=== PATIENT | male | born 1950 | race Caucasian/White ===

== ENCOUNTER 2018-01-26 02:59 | Inpatient (IN) | payer MEDICARE, OTHER ==
[2018-01-26 03:01] VITALS: BMI 34.7
--- NOTE | 2018-01-26 03:17 | ED PDOC ---
Arrival/HPI - General Chief Complaint: Weakness/Neurological Deficit Time Seen by Provider: 01/26/18 03:04 Historian: Patient - History of Present Illness Narrative History of Present Illness (Text): 01/26/18 03:17 Meek Alexander is a 67 year old male, whose past medical history includes hypertension and CVA, who presents to the Emergency department brought in by EMS for syncope and generalized weakness. Patient states he began feeling weak while in the bathroom, had a syncopal episode, and fell to the ground. On arrival, patient noted to be febrile at 103.6F. Patient denies any fever, chills , chest pain, shortness of breath, nausea, vomiting, headache, dizziness, or any other complaints. Symptom Onset: Gradual Symptom Course: Unchanged Activities at Onset: Light Context: Home Past Medical History - Provider Review Nursing Documentation Reviewed: Yes - Infectious Disease Hx of Infectious Diseases: None - Cardiac Hx Cardiac Disorders: Yes Hx Hypertension: Yes - Pulmonary Hx Respiratory Disorders: No - Neurological Hx Neurological Disorder: Yes HX Cerebrovascular Accident: Yes (lt sided deficits) - HEENT Hx HEENT Disorder: No - Renal Hx Renal Disorder: No - Endocrine/Metabolic Hx Endocrine Disorders: No - Hematological/Oncological Hx Blood Disorders: No - Integumentary Hx Dermatological Disorder: No - Musculoskeletal/Rheumatological Hx Musculoskeletal Disorders: No - Gastrointestinal Hx Gastrointestinal Disorders: No - Genitourinary/Gynecological Hx Genitourinary Disorders: No - Psychiatric Hx Psychophysiologic Disorder: No Hx Substance Use: No Family/Social History - Physician Review Nursing Documentation Reviewed: Yes Family/Social History: Unknown Family HX Smoking Status: Never Smoked Hx Alcohol Use: No Hx Substance Use: No Allergies/Home Meds Allergies/Adverse Reactions: Allergies No Known Allergies Allergy (Verified 01/26/18 03:04) Home Medications: Home Meds Medication Instructions Recorded Confirmed Aspirin [Aspirin Chewable] 81 mg PO DAILY 01/26/18 01/26/18 Losartan/Hydrochlorothiazide 1 each PO DAILY 01/26/18 01/26/18 [Losartan-Hctz 100-25 mg Tab] Omeprazole [Omeprazole] 20 mg PO DAILY 01/26/18 01/26/18 Simvastatin [Zocor] 20 mg PO DAILY 01/26/18 01/26/18 Review of Systems - Physician Review All systems were reviewed & negative as marked: Yes - Review of Systems Constitutional: Other (+generalized weakness) Eyes: Normal ENT: Normal Respiratory: Normal. absent: SOB Cardiovascular: Syncope Gastrointestinal: Normal. absent: Abdominal Pain, Diarrhea, Nausea, Vomiting Genitourinary Male: Normal. absent: Dysuria, Frequency, Hematuria, Urinary Output Changes Musculoskeletal: Normal. absent: Back Pain, Neck Pain Skin: Normal. absent: Rash Neurological: Normal. absent: Headache, Dizziness Endocrine: Normal Hemo/Lymphatic: Normal Psychiatric: Normal Physical Exam Vital Signs Reviewed: Yes Vital Signs Temp Pulse Pulse Resp BP Pulse Ox 01/26/18 15:27 99.6 F 86 18 99/44 L 97 01/26/18 13:01 99.3 F 81 81 18 99/45 L 01/26/18 13:00 78 18 100/40 L 96 01/26/18 11:00 99.3 F 82 18 99/49 L 97 01/26/18 09:40 103.6 F H 95 H 20 118/79 98 01/26/18 09:00 101 H 18 121/65 97 01/26/18 07:21 105 H 18 122/68 99 01/26/18 06:12 99.0 F 105 H 20 124/65 100 01/26/18 05:51 109 H 18 124/65 99 01/26/18 04:27 120 H 20 155/74 H 99 01/26/18 03:22 103.6 F H 126 H 19 142/74 93 L Temperature: Febrile Blood Pressure: Hypertensive Pulse: Tachycardic Respiratory Rate: Normal Appearance: Positive for: Well-Appearing, Non-Toxic, Comfortable Pain Distress: None Mental Status: Positive for: Alert and Oriented X 3 - Systems Exam Head: Present: Atraumatic, Normocephalic Pupils: Present: PERRL Extroacular Muscles: Present: EOMI Conjunctiva: Present: Normal Mouth: Present: Moist Mucous Membranes Neck: Present: Normal Range of Motion Respiratory/Chest: Present: Clear to Auscultation, Good Air Exchange. No: Respiratory Distress, Accessory Muscle Use Cardiovascular: Present: Regular Rate and Rhythm, Normal S1, S2. No: Murmurs Abdomen: No: Tenderness, Distention, Peritoneal Signs Back: Present: Normal Inspection Upper Extremity: Present: Normal Inspection. No: Cyanosis, Edema Lower Extremity: Present: Erythema (Left leg cellulitis). No: Edema Neurological: Present: GCS=15, CN II-XII Intact, Speech Normal Skin: Present: Warm, Dry, Normal Color. No: Rashes Psychiatric: Present: Alert, Oriented x 3, Normal Insight, Normal Concentration Medical Decision Making ED Course and Treatment: 01/26/18 03:17 Impression: 67 year old male complaining of generalized weakness and syncope. Plan: -- EKG -- Chest X-ray -- Labs, VBG, troponin, blood culture -- Urinalysis, urine drug screen -- IV fluids -- Zofran -- Reassess and disposition Prior Visits: Notes and results from previous visits were reviewed. Progress Notes: 01/26/18 04:00 Chest X-ray reviewed, shows no acute processes. 01/26/18 04:17 Pt febrile, tachycardic with WBC: 18.7 and lactate: 4.7. Code Sepsis called. 01/26/18 04:59 Reviewed EKG, sinus tachycardia at [address]-segment elevations or depressions, no T-wave inversions. 01/26/18 05:50 Case discussed with lpn medical assistant clinical rehabilitation liaison, who is aware and agrees with plan. 01/26/18 05:[address] Minor, who is aware and agrees with plan. Accepts pt in to hospitalist service. Pt will be admitted to to Telemetry for sepsis. - Lab Interpretations Microbiology Results: Microbiology Results 01/26/18 04:20 Blood Blood Culture - Preliminary NO GROWTH AFTER 3 DAYS 01/26/18 03:16 Blood Blood Culture - Preliminary NO GROWTH AFTER 3 DAYS 01/26/18 06:00 Urine,Clean Catch Urine Culture - Final No Growth (<1,000 CFU/ML) Lab Results: 01/26/18 03:16 01/26/18 03:16 Lab Results 01/26/18 06:00: Urine Color Yellow, Urine Appearance Clear, Urine pH 6.0, Ur Specific [place] 1.015, Urine Protein Negative, Urine Glucose (UA) Negative, Urine Ketones Negative, Urine Blood Trace-intact H, Urine Nitrate Negative, Urine Bilirubin Negative, Urine Urobilinogen 0.2, Ur Leukocyte Esterase Negative , Urine RBC 0 - 2, Urine WBC 0 - 2, Ur Epithelial Cells 0 - 2 01/26/18 03:16: Sodium 139, Chloride 94 L, Potassium 3.2 L, Carbon Dioxide 29, Anion Gap 20, BUN 23 H, Creatinine 1.4, Est GFR ( Amer) > 60, Est GFR ( Non-Af Amer) 51, Random Glucose 129 H, Calcium 9.3, Phosphorus 0.7 L*, Magnesium 1.3 L, Total Bilirubin 0.4, AST 32, ALT 24, Alkaline Phosphatase 108, Troponin I 0.03, Total Protein 8.3, Albumin 4.3, Globulin 4.0, Albumin/Globulin Ratio 1.1 01/26/18 03:16: pO2 29 L, VBG pH 7.39, VBG pCO2 51.0, VBG HCO3 30.9 H, VBG Total CO2 32.5 H, VBG O2 Sat (Calc) 58.9, VBG Base Excess 4.7 H, VBG Potassium 3.3 L, Sodium 136.0, Chloride 96.0 L, Glucose 130 H, Lactate 4.7 H*, FiO2 21.0, Venous Blood Potassium 3.3 L 01/26/18 03:16: PT 13.3 H, INR 1.16 H, APTT 25.4 01/26/18 03:16: WBC 18.7 H, RBC 5.48, Hgb 14.6, Hct 42.8, MCV 78.1 L, MCH 26.6, MCHC 34.1, RDW 15.0 H, Plt Count 325, MPV 9.0, Gran % 93.5 H, Lymph % (Auto) 4.3 L, [place] % (Auto) 1.8, Eos % (Auto) 0.2 L, Baso % (Auto) 0.2, Gran # 17.47 H , Lymph # (Auto) 0.8 L, [place] # (Auto) 0.3, Eos # (Auto) 0.0, Baso # (Auto) 0.03 , Neutrophils % (Manual) 85 H, Band Neutrophils % 7 H, Lymphocytes % (Manual) 5 L, Monocytes % (Manual) 3, Platelet Evaluation Normal 01/26/18 03:12: POC Glucose (mg/dL) 132 H I have reviewed the lab results: Yes - RAD Interpretation Radiology Orders: 01/26/18 03:22 CHEST PORTABLE [RAD] Stat Home Staging Specialist: ED Physician - EKG Interpretation Interpreted by ED Physician: Yes Type: 12 lead EKG - Medication Orders Current Medication Orders: Acetaminophen (Tylenol 325mg Tab) 650 mg PO Q4 PRN PRN Reason: Fever >100.4 F Last Admin: 01/27/18 23:36 Dose: 650 mg MAR Pain/Vitals Document 01/27/18 23:36 CDL (Rec: 01/27/18 23:37 CDL [id number]) Vitals Temperature (97.6 F-99.6 F) 100.4 F Temperature Source Oral Re-Assess: MAR Pain/Vitals Document 01/28/18 00:36 CDL (Rec: 01/28/18 04:47 CDL [id number] Vitals Temperature (97.6 F-99.6 F) 99.0 F Temperature Source Oral Albuterol/Ipratropium (Duoneb 3 Mg/0.5 Mg (3 Ml) Ud) 3 ml IH [id number] HANH Last Admin: 01/29/18 19:11 Dose: 3 ml Furosemide (Lasix) 20 mg IVP DAILY HANH Heparin Sodium (Porcine) (Heparin) 5,000 units SC Q12 HANH PRN Reason: Protocol Last Admin: 01/29/18 22:54 Dose: 5,000 units Subcutaneous Administrations Document 01/29/18 22:54 KOPPS (Rec: 01/29/18 22:54 KOPPS [id number][place] Injection Site MAR Injection Site Right Arm Charges for Administration # of Subcutaneous Administrations 1 Meropenem (Merrem Iv 1 Gm Premix) 50 mls @ 100 mls/hr IVPB Q12 [facility]AN[facility] PRN Reason: Protocol Last Admin: 01/29/18 22:55 Dose: 100 mls/hr eMAR Start Stop Document 01/29/18 22:55 KOPPS (Rec: 01/29/18 22:55 [id number][place] Intravenous Solution Start Date 01/29/18 Start Time 22:55 End Date 01/29/18 End time 23:25 Total Infusion Time 30 Doxycycline Hyclate 100 mg/ (Sodium Chloride) 100 mls @ 100 mls/hr IVPB Q12 [facility]AN[facility] PRN Reason: Protocol Last Admin: 01/29/18 22:54 Dose: 100 mls/hr eMAR Start Stop Document 01/29/18 22:54 KOPPS (Rec: 01/29/18 22:55 [id number][place] Intravenous Solution Start Date 01/29/18 Start Time 22:54 End Date 01/29/18 End time 23:54 Total Infusion Time 60 Methylprednisolone (Solu-Medrol) 40 mg IVP Q12 [facility] Last Admin: 01/29/18 22:54 Dose: 40 mg IVP Administration Document 01/29/18 22:54 KOPPS (Rec: 01/29/18 22:54 [id number][place] Charges for Administration # of IVP Administrations 1 Pantoprazole Sodium (Protonix Ec Tab) 40 mg PO 0600 [facility] Last Admin: 01/29/18 06:24 Dose: 40 mg Discontinued Medications Acetaminophen (Tylenol 325mg Tab) 975 mg PO STAT STA Stop: 01/26/18 09:39 Last Admin: 01/26/18 09:45 Dose: 975 mg [facility] Pain/Vitals Document 01/26/18 09:45 SECTION 8 PROPERTY MANAGER (Rec: 01/26/18 09:45 SECTION 8 PROPERTY MANAGER [id number]) Pain Reassessment Is This A Pain ReAssessment? No Re-Assess: [facility] Pain/Vitals Document 01/26/18 10:45 SECTION 8 PROPERTY MANAGER (Rec: 01/26/18 11:22 SECTION 8 PROPERTY MANAGER [id number]) Pain Reassessment Is This A Pain ReAssessment? Yes Acetaminophen (Tylenol 325mg Tab) 650 mg PO Q6H PRN PRN Reason: Fever >100.4 F Last Admin: 01/27/18 09:04 Dose: 650 mg MAR Pain/Vitals Document 01/27/18 09:04 RT (Rec: 01/27/18 09:04 RT [id number]) Vitals Temperature (97.6 F-99.6 F) 100.8 F Temperature Source Oral Re-Assess: MAR Pain/Vitals Document 01/27/18 10:04 RT (Rec: 01/27/18 11:15 RT [id number]) Pain Reassessment Is This A Pain ReAssessment? No Vitals Temperature (97.6 F-99.6 F) 100.5 F Temperature Source Oral Furosemide (Lasix) 40 mg IVP Q12 [facility] Last Admin: 01/28/18 22:35 Dose: 40 mg MAR Blood Pressure Document 01/28/18 22:35 KOPPS (Rec: 01/28/18 22:36 KOPPS [place] [id number]) Blood Pressure Blood Pressure (100/60-150/90) 119/71 IVP Administration Document 01/28/18 22:35 KOPPS (Rec: 01/28/18 22:36 KOPPS [id number]) Charges for Administration # of IVP Administrations 1 Home Med (Home Med) 4 unit PO DAILY [facility] Stop: 01/29/18 10:01 Last Admin: 01/29/18 14:53 Dose: 4 unit Sodium Chloride (Sodium Chloride 0.9%) 1,000 mls @ 80 mls/hr IV .[id number] [facility] Last Admin: 01/26/18 18:48 Dose: Lactated Ringer's 3,000 ml/ IV (SUPPLIES) 3,000 mls @ 6,395.64 mls/hr IV ONCE ONE PRN Reason: 60 ML/KG/HR Stop: 01/26/18 04:23 Last Admin: 01/26/18 04:37 Dose: 6,395.64 mls/hr eMAR Start Stop Document 01/26/18 04:37 SS (Rec: 01/26/18 04:37 SS [id number]) Intravenous Solution Start Date 01/26/18 Start Time 04:37 Vancomycin HCl (Vancomycin 1gm) 1 gm in 250 mls @ 167 mls/hr IVPB STAT STA PRN Reason: Protocol Stop: 01/26/18 06:12 Last Admin: 01/26/18 05:01 Dose: 167 mls/hr eMAR Start Stop Document 01/26/18 05:01 SS (Rec: 01/26/18 05:14 SS [id number]) Intravenous Solution Start Date 01/26/18 Start Time 05:01 End Date 01/26/18 End time 06:31 Total Infusion Time 90 Magnesium 2 gm/50 ml NS (Magnesium Sulfate 2 Gm/50 Ml Ns) 2 gm in 50 mls @ 50 mls/hr IVPB ONCE ONE Stop: 01/26/18 06:51 Last Admin: 01/26/18 07:05 Dose: 50 mls/hr eMAR Start Stop Document 01/26/18 07:05 SS (Rec: 01/26/18 07:05 SS [id number]) Intravenous Solution Start Date 01/26/18 Start Time 07:05 End Date 01/26/18 End time 08:05 Total Infusion Time 60 Aztreonam (Azactam 2 Gm) 100 mls @ 100 mls/hr IVPB STAT STA PRN Reason: Protocol Stop: 01/26/18 07:06 Last Admin: 01/26/18 07:44 Dose: 100 mls/hr eMAR Start Stop Document 01/26/18 07:44 IT (Rec: 01/26/18 07:45 IT [id number]) Intravenous Solution Start Date 01/26/18 Start Time 07:44 End Date 01/26/18 End time 08:44 Total Infusion Time 60 Cefepime HCl (Maxipime 2gm) 2 gm in 100 mls @ 100 mls/hr IVPB Q12 [facility] PRN Reason: Protocol Stop: 01/31/18 10:01 Last Admin: 01/27/18 09:04 Dose: 100 mls/hr eMAR Start Stop Document 01/27/18 09:04 RT (Rec: 01/27/18 09:05 RT [id number]) Intravenous Solution Start Date 01/27/18 Start Time 09:04 End Date 01/27/18 End time 10:00 Total Infusion Time 56 Potassium Chloride (Potassium Chloride 20 Meq/100 Ml) 20 meq in 100 mls @ 50 mls/hr IVPB Q2H [facility]AN[facility] Stop: 01/26/18 16:44 Last Admin: 01/26/18 18:02 Dose: 50 mls/hr eMAR Start Stop Document 01/26/18 18:02 MF (Rec: 01/26/18 18:02 MF [id number]) Intravenous Solution Start Date 01/26/18 Start Time 18:02 Sodium Chloride (Sodium Chloride 0.9%) 1,000 mls @ 100 mls/hr IV .Q10H [facility] Last Admin: 01/26/18 17:39 Dose: 100 mls/hr eMAR Start Stop Document 01/26/18 17:39 MF (Rec: 01/26/18 17:39 MF [id number]) Intravenous Solution Start Date 01/26/18 Start Time 17:39 Potassium Chloride (Potassium Chloride 10 Meq/100 Ml) 10 meq in 100 mls @ 50 mls/hr IVPB Q2H [facility] Stop: 01/27/18 01:29 Last Admin: 01/27/18 02:15 Dose: 50 mls/hr eMAR Start Stop Document 01/27/18 02:15 CDL (Rec: 01/27/18 02:15 CDL [id number]) Intravenous Solution Start Date 01/27/18 Start Time 02:15 Magnesium Sulfate/Dextrose (Magnesium Sulfate 1 Gm/100 Ml D5w) 1 gm in 100 mls @ 100 mls/hr IVPB ONCE ONE Stop: 01/26/18 22:47 Last Admin: 01/26/18 22:37 Dose: 100 mls/hr eMAR Start Stop Document 01/26/18 22:37 CDL (Rec: 01/26/18 22:37 CDL [id number]) Intravenous Solution Start Date 01/26/18 Start Time 22:37 End Date 01/26/18 End time 23:37 Total Infusion Time 60 Sodium Chloride (Sodium Chloride 0.9%) 1,000 mls @ 150 mls/hr IV .[id number] [facility] Last Admin: 01/27/18 11:12 Dose: 150 mls/hr eMAR Start Stop Document 01/27/18 11:12 RT (Rec: 01/27/18 11:12 RT [id number]) Intravenous Solution Start Date 01/27/18 Start Time 11:12 Vancomycin HCl 2 gm/ Sodium (Chloride) 500 mls @ 170 mls/hr IVPB ONCE ONE PRN Reason: Protocol Stop: 01/27/18 13:21 Last Admin: 01/27/18 17:41 Dose: 170 mls/hr eMAR Start Stop Document 01/27/18 17:41 RT (Rec: 01/27/18 17:42 RT [id number]) Intravenous Solution Start Date 01/27/18 Start Time 17:41 End Date 01/27/18 End time 20:40 Total Infusion Time 179 Calcium Gluconate 1,000 mg/ (Dextrose) 110 mls @ 110 mls/hr IVPB ONCE ONE Stop: 01/27/18 15:22 Sodium Chloride (Sodium Chloride 0.9%) 1,000 mls @ 200 mls/hr IV .Q5H [facility] Last Admin: 01/28/18 06:40 Dose: 200 mls/hr eMAR Start Stop Document 01/28/18 06:40 CDL (Rec: 01/28/18 06:41 CDL [id number]) Intravenous Solution Start Date 01/28/18 Start Time 06:41 Levalbuterol HCl (Xopenex) 0.63 mg IH TIDRESP [facility] Last Admin: 01/28/18 07:50 Dose: 0.63 mg Levalbuterol HCl (Xopenex) 0.63 mg IH Q2H PRN PRN Reason: Shortness of Breath Last Admin: 01/28/18 03:26 Dose: 0.63 mg Methylprednisolone (Solu-Medrol) 40 mg IVP Q8H [facility] Last Admin: 01/29/18 01:45 Dose: 40 mg IVP Administration Document 01/29/18 01:45 KOPPS (Rec: 01/29/18 01:45 KOPPS [id number]) Charges for Administration # of IVP Administrations 1 Ondansetron HCl (Zofran Inj) 4 mg IVP STAT STA Stop: 01/26/18 03:34 Last Admin: 01/26/18 03:45 Dose: 4 mg IVP Administration Document 01/26/18 03:45 SS (Rec: 01/26/18 04:26 SS [id number]) Charges for Administration # of IVP Administrations 1 Pneumococcal Polyvalent Vaccine (Pneumovax 23 Vaccine) 0.5 ml IM .ONCE ONE Stop: 01/26/18 13:19 Potassium Chloride (K-Dur 20 Meq Er Tab) 40 meq PO ONCE ONE Stop: 01/26/18 05:16 Last Admin: 01/26/18 06:10 Dose: 40 meq Potassium Chloride (K-Dur 20 Meq Er Tab) 40 meq PO STAT STA Stop: 01/26/18 13:05 Last Admin: 01/26/18 15:03 Dose: 40 meq Potassium Chloride (K-Dur 20 Meq Er Tab) 40 meq PO ONCE ONE Stop: 01/28/18 14:59 Last Admin: 01/28/18 15:23 Dose: 40 meq Potassium Chloride (K-Dur 20 Meq Er Tab) 40 meq PO STAT STA Stop: 01/29/18 11:01 Last Admin: 01/29/18 11:14 Dose: 40 meq Potassium Chloride (K-Dur 20 Meq Er Tab) 20 meq PO ONCE ONE Stop: 01/29/18 18:31 Last Admin: 01/29/18 18:31 Dose: 20 meq Potassium Phos/Sodium Phos (Neutra-Phos) 1 pkt PO STAT STA Stop: 01/26/18 05:46 Last Admin: 01/26/18 06:36 Dose: 1 pkt Potassium Phos/Sodium Phos (Neutra-Phos) 1 pkt PO TID HAN[facility] Stop: 01/27/18 10:01 Last Admin: 01/27/18 09:05 Dose: 1 pkt - Scribe Statement The provider has reviewed the documentation as recorded by the Augusta Mai Provider Scribe Attestation: All medical record entries made by the Kayleeibkaren were at my direction and personally dictated by me. I have reviewed the chart and agree that the record accurately reflects my personal performance of the history, physical exam, medical decision making, and the department course for this patient. I have also personally directed, reviewed, and agree with the discharge instructions and disposition. Disposition/Present on Arrival - Present on Arrival Any Indicators Present on Arrival: No History of DVT/PE: No History of Uncontrolled Diabetes: No Urinary Catheter: No History of Decub. Ulcer: No History Surgical Site Infection Following: None - Disposition Have Diagnosis and Disposition been Completed?: Yes Diagnosis: Sepsis, Cellulitis of left leg Disposition: HOSPITALIZED Disposition Time: 05:55 Condition: FAIR
[2018-01-26] MEDS: Sodium Chloride 0.9% 1,000 ML IV SCH ×2 (03:45→18:48)
[2018-01-26 03:47] LABS: BASO # 0.03 K/mm3 (0.0-2.0); BASO % 0.2 % (0.0-3.0); EOS % 0.2 % (1.5-5.0); GRAN # 17.47 (1.4-6.5); GRAN % 93.5 % (50.0-68.0); HEMOGLOBIN 14.6 g/dL (14.0-18.0); INR 1.16 (0.93-1.08); LYMPH # 0.8 (1.2-3.4); LYMPH % 4.3 % (22.0-35.0); MEAN CELL VOLUME 78.1 fl (80.0-105.0); MEAN CORPUSCULAR HEMOGLOBIN 26.6 pg (25.0-35.0); MEAN CORPUSCULAR HGB CONC 34.1 g/dl (31.0-37.0); MONO # 0.3 (0.1-0.6); MONO % 1.8 % (1.0-6.0); PARTIAL THROMBOPLASTIN TIME 25.4 Seconds (25.1-36.5); PLATELET COUNT 325 10^3/uL (120.0-450.0); PROTHROMBIN TIME 13.3 SECONDS (9.4-12.5); RBC 5.48 10^6/uL (3.5-6.1); WHITE BLOOD COUNT 18.7 10^3/ul (4.5-11.0)
[2018-01-26 03:59] LABS: VENOUS BLOOD GAS BASE EXCESS 4.7 mmol/L (0.0-2.0); VENOUS BLOOD GAS PO2 29 mm/Hg (30-55); VENOUS BLOOD PH 7.39 (7.32-7.43)
[2018-01-26 04:25] LABS: TROPONIN I 0.03 ng/mL
[2018-01-26] MEDS ORDERED: Vancomycin 1gm in NS 250ml 1 GM/250 ML BAG IVPB STA (04:43)
[2018-01-26 05:07] LABS: ALB/GLOB RATIO 1.1 (1.1-1.8); ALBUMIN 4.3 g/dL (3.0-4.8); ALT/SGPT 24 U/L (7-56); AST/SGOT 32 U/L (17-59); BLOOD UREA NITROGEN 23 mg/dL (7-21); CALCIUM 9.3 mg/dL (8.4-10.5); GFR AFRICAN-AMERICAN > 60; GFR NON-AFRICAN AMERICAN 51
[2018-01-26] MEDS ORDERED: Potassium Chloride 20 mEq ER Tab PO ONE (05:15)
[2018-01-26 05:44] LABS: BAND 7 % (0-2); LYMPHOCYTE 5 % (22.0-35.0); MONOCYTE 3 % (1.0-6.0); NEUTROPHIL 85 % (50.0-70.0); PLATELET ESTIMATE NORMAL (NORMAL)
[2018-01-26] MEDS ORDERED: Potassium & Sodium Phosphate PO STA (05:45)
[2018-01-26] MEDS ORDERED: Magnesium 2 gm/50 ml NS 2 GM/50 ML BAG IVPB ONE (05:52)
[2018-01-26] MEDS ORDERED: Aztreonam 2 Gm in NS 100mL 100 ML IVPB STA (06:07)
[2018-01-26 06:35] LABS: URINE BILIRUBIN NEGATIVE (NEGATIVE); URINE BLOOD TRACE-INTACT (NEGATIVE); URINE GLUCOSE (UA) NEGATIVE (NEGATIVE); URINE LEUKOCYTE ESTERASE NEGATIVE Leu/uL (NEGATIVE); URINE PROTEIN NEGATIVE mg/dL (<30 mg/dL); URINE UROBILINOGEN 0.2 E.U./dL (<1 E.U./dL)
[2018-01-26 06:37] LABS: URINE APPEARANCE CLEAR (CLEAR); URINE COLOR YELLOW (YELLOW)
[2018-01-26 06:43] LABS: URINE EPITHELIAL CELLS 0 - 2 /hpf (0-5); URINE RBC 0 - 2 /hpf (0-2); URINE WBC 0 - 2 /hpf (0-6)
--- NOTE | 2018-01-26 06:55 | CP.PCM.HP ---
<AnoopRoseann - Last Filed: 01/26/18 06:46> History of Present Illness - History of Present Illness History of Present Illness: HPI: Patient is a 67 year old male with a past medical history of hypertension, CVA x2, hyperlipidemia, and questionable psych history, who presents to the ED for fall in his bathroom and weakness. Patient's and son are in the room at time of exam and say the patient has not been responding normally to them since he fell in the bathroom. Per family, patient was shivering and vomited x1 without any blood. Patient's son asked me to step out of the room to discuss the patients history of extreme paranoia, especially when it comes to seeing doctors. 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 Patient;s brother is a schizophrenic and the patient's son thinks he may be too. When I spoke with the patient he would answer my yes/no questions for ROS. He admitted to chills, and some pain with RLE palpation, but denies dizziness, headache, chest pain, SOB, palpitations, abdominal pain, nausea, diarrhea, constipation. PMH: HTN, HLD, CVA x2 Meds: Losartan/HCTZ, omeprazole, simvastatin - family unsure of doses but says he goes to [facility] on Allergies: denies PSH: denies FH: Brother with Schizophrenia, father with [place] SH: denies tobacco, alcohol, and drug use Present on Admission - Present on Admission Any Indicators Present on Admission: No Review of Systems - Review of Systems All systems: reviewed and no additional remarkable complaints except (as per HPI ) Past Patient History - Infectious Disease Hx of Infectious Diseases: None - Past Social History Smoking Status: Never Smoked - CARDIAC Hx Cardiac Disorders: Yes Hx Hypertension: Yes - PULMONARY Hx Respiratory Disorders: No - NEUROLOGICAL Hx Neurological Disorder: Yes HX Cerebrovascular Accident: Yes (lt sided deficits) - HEENT Hx HEENT Problems: No - RENAL Hx Chronic Kidney Disease: No - ENDOCRINE/METABOLIC Hx Endocrine Disorders: No - HEMATOLOGICAL/ONCOLOGICAL Hx Blood Disorders: No - INTEGUMENTARY Hx Dermatological Problems: No - MUSCULOSKELETAL/RHEUMATOLOGICAL Hx Musculoskeletal Disorders: No - GASTROINTESTINAL Hx Gastrointestinal Disorders: No - GENITOURINARY/GYNECOLOGICAL Hx Genitourinary Disorders: No - PSYCHIATRIC Hx Psychophysiologic Disorder: No Hx Substance Use: No - SURGICAL HISTORY Hx Surgeries: No Meds Allergies/Adverse Reactions: Allergies Allergy/AdvReac Type Severity Reaction Status Date / Time No Known Allergies Allergy Verified 01/26/18 03:04 Physical Exam - Constitutional Appears: Non-toxic, No Acute Distress, Other (shivering) - Head Exam Head Exam: ATRAUMATIC, NORMAL INSPECTION, NORMOCEPHALIC - Eye Exam Eye Exam: EOMI, Normal appearance, PERRL - ENT Exam ENT Exam: Mucous Membranes Moist - Neck Exam Neck exam: Positive for: Normal Inspection. Negative for: Tenderness - Respiratory Exam Respiratory Exam: Clear to Auscultation Bilateral, NORMAL BREATHING PATTERN. absent: Rales, Rhonchi, Wheezes - Cardiovascular Exam Cardiovascular Exam: Tachycardia, REGULAR RHYTHM, +S1, +S2. absent: Diastolic murmur, Gallop, Rubs, Systolic Murmur - GI/Abdominal Exam GI & Abdominal Exam: Normal Bowel Sounds, Soft. absent: Distended, Tenderness - Extremities Exam Extremities exam: Positive for: normal capillary refill, pedal edema (R>L), tenderness (RLE over area of erythema on escudero). Negative for: calf tenderness Additional comments: Small ulceration of left foot with overlying eschar - patient says this was from a poorly fitted shoe - Back Exam Back exam: NORMAL INSPECTION - Neurological Exam Neurological exam: Alert, Oriented x3 - Psychiatric Exam Psychiatric exam: Normal Affect, Normal Mood - Skin Skin Exam: Dry, Intact, Normal Color, Warm Results - Vital Signs Recent Vital Signs: Last Vital Signs Temp 99.0 F 01/26/18 06:12 Pulse 105 H 01/26/18 06:12 Resp 20 01/26/18 06:12 BP 124/65 01/26/18 06:12 Pulse Ox 100 01/26/18 06:12 - Labs Result Diagrams: 01/26/18 03:16 01/26/18 03:16 Assessment & Plan - Assessment and Plan (Free Text) Assessment: Patient is a 67 year old male with a past medical history of hypertension, CVA x2, hyperlipidemia, and questionable psych history, who presents with sepsis likely due to RLE cellulitis Plan: Sepsis * Likely due to RLE cellulitis * Leukocytosis 18.7, temp 103.6, lactate 4.7 * f/u repeat lactic * Given Vanc 1 g and Aztreonam in the ED - will start Vanc on the floor with cefepime per Dr. Rice * ID consult (Dr. Nieves) * f/u blood cultures * f/u UA and urine culture * f/u procal * NS@80cc/h Electrolyte Imbalance * Mg 0.7 * K 3.2 * Phos 1.3 * Replaced, monitor with AM labs History of HTN, HLD * Will need to call pharmacy to confirm home meds and doses * [facility]: [phone] Prophylaxis * DVT: heparin SC; SCDs c/i * GI: protonix 40 QD <Miriam Minor - Last Filed: 01/27/18 06:07> Results - Vital Signs Recent Vital Signs: Last Vital Signs Temp 99.6 F 01/26/18 15:27 Pulse 86 01/26/18 15:27 Resp 18 01/26/18 15:27 BP 99/44 L 01/26/18 15:27 Pulse Ox 97 01/26/18 15:27 - Labs Result Diagrams: 01/26/18 19:10 01/26/18 19:10 Labs: Laboratory Results - last 24 hr 01/26/18 01/26/18 01/26/18 06:38 07:00 07:00 WBC RBC Hgb Hct MCV MCH MCHC RDW Plt Count MPV Gran % Lymph % (Auto) [place] % (Auto) Eos % (Auto) Baso % (Auto) Gran # Lymph # (Auto) [place] # (Auto) Eos # (Auto) Baso # (Auto) pO2 61 H VBG pH 7.39 VBG pCO2 49.0 VBG HCO3 29.7 H VBG Total CO2 31.2 H VBG O2 Sat (Calc) 92.2 H VBG Base Excess 3.7 H VBG Potassium 3.8 Sodium 134.0 Chloride 99.0 Glucose 106 Lactate 4.0 H* FiO2 21.0 Potassium Carbon Dioxide Anion Gap BUN Creatinine Est GFR ( Amer) Est GFR (Non-Af Amer) Random Glucose Lactic Acid 3.2 H Calcium Phosphorus Magnesium Procalcitonin 2.79 H Venous Blood Potassium 3.8 01/26/18 01/26/18 01/26/18 11:12 19:10 19:10 WBC 26.9 H* D RBC 4.81 Hgb 12.8 L Hct 37.4 L MCV 77.8 L MCH 26.6 MCHC 34.2 RDW 15.4 H Plt Count 229 MPV 8.7 Gran % 92.0 H Lymph % (Auto) 4.3 L Cabell % (Auto) 3.6 Eos % (Auto) 0.0 L Baso % (Auto) 0.1 Gran # 24.70 H Lymph # (Auto) 1.2 [place]ell # (Auto) 1.0 H Eos # (Auto) 0.0 Baso # (Auto) 0.03 pO2 VBG pH VBG pCO2 VBG HCO3 VBG Total CO2 VBG O2 Sat (Calc) VBG Base Excess VBG Potassium Sodium 138 139 Chloride 99 99 Glucose Lactate FiO2 Potassium 3.0 L 3.5 L Carbon Dioxide 27 31 Anion Gap 15 12 BUN 18 21 Creatinine 1.2 1.3 Est GFR ( Amer) > 60 > 60 Est GFR (Non-Af Amer) > 60 55 Random Glucose 109 116 H Lactic Acid Calcium 8.6 8.1 L Phosphorus 1.3 L* 1.3 L* Magnesium 1.7 1.8 Procalcitonin Venous Blood Potassium Attending/Attestation - Attestation I have personally seen and examined this patient.: Yes I have fully participated in the care of the patient.: Yes I have reviewed all pertinent clinical information: Yes Notes (Text): 01/27/18 06:06 Patient was seen when he was in bed [id number]. Agree with history, physical examination, assessment and plan.
[2018-01-26 07:23] LABS: VENOUS BLOOD GAS BASE EXCESS 3.7 mmol/L (0.0-2.0); VENOUS BLOOD GAS PO2 61 mm/Hg (30-55); VENOUS BLOOD PH 7.39 (7.32-7.43)
--- NOTE | 2018-01-26 07:58 | RAD ---
HISTORY: Sepsis Patient COMPARISON: No prior. FINDINGS: LUNGS: No active pulmonary disease. PLEURA: No significant pleural effusion identified, no pneumothorax apparent. CARDIOVASCULAR: Normal. OSSEOUS STRUCTURES: No significant abnormalities. VISUALIZED UPPER ABDOMEN: Normal. OTHER FINDINGS: None. IMPRESSION: No acute cardiopulmonary disease appreciated.
[2018-01-26] MEDS: Cefepime IV 2 gm in NS 2 GM/100 ML BAG IVPB SCH ×2 (09:43→21:21)
[2018-01-26] MEDS ORDERED: Cefepime IV 2 gm in NS 2 GM/100 ML BAG IVPB SCH (10:00)
[2018-01-26 11:42] LABS: BLOOD UREA NITROGEN 18 mg/dL (7-21); CALCIUM 8.6 mg/dL (8.4-10.5); GFR AFRICAN-AMERICAN > 60; GFR NON-AFRICAN AMERICAN > 60
--- NOTE | 2018-01-26 12:53 | CARD ---
APPROVED REPORT EKG Measurement Heart [id number] <Conclusion> Sinus tachycardia Otherwise normal ECG
[2018-01-26] MEDS ORDERED: Potassium Chloride 20 mEq ER Tab PO STA (13:04)
[2018-01-26] MEDS ORDERED: Pneumococcal 23-Valent Vaccine IM ONE (13:18)
--- NOTE | 2018-01-26 13:54 | CP.PCM.CON ---
History of Present Illness - History of Present Illness History of Present Illness: 67 year old male with PMH of HTN, history of CVA, dyslipidemia, obesity with BMI 35 was brought in to [facility] after he was found in the bathroom this morning unable to get up after he apparently fell. The patient states that he felt lighthdeaded and weak and slumped to the floor without losing consciousness. He denies headache, no nausea or vomiting, no chest pain or palpitations, no abdominal pain, no sore throat, no rhinorrhea, no diarrhea, no dysuria. In the ED, the patient was found to have fevers and with right leg swelling with some pain. Infectios Diseases consult is requested to further evaluate and manage. Review of Systems - Review of Systems All systems: reviewed and no additional remarkable complaints except (as per HPI ) Past Patient History - Infectious Disease Hx of Infectious Diseases: None - Past Social History Smoking Status: Never Smoked - CARDIAC Hx Cardiac Disorders: Yes Hx Hypertension: Yes - PULMONARY Hx Respiratory Disorders: No - NEUROLOGICAL Hx Neurological Disorder: Yes HX Cerebrovascular Accident: Yes (lt sided deficits) - HEENT Hx HEENT Problems: No - RENAL Hx Chronic Kidney Disease: No - ENDOCRINE/METABOLIC Hx Endocrine Disorders: No - HEMATOLOGICAL/ONCOLOGICAL Hx Blood Disorders: No - INTEGUMENTARY Hx Dermatological Problems: No - MUSCULOSKELETAL/RHEUMATOLOGICAL Hx Musculoskeletal Disorders: No - GASTROINTESTINAL Hx Gastrointestinal Disorders: No - GENITOURINARY/GYNECOLOGICAL Hx Genitourinary Disorders: No - PSYCHIATRIC Hx Psychophysiologic Disorder: No Hx Substance Use: No - SURGICAL HISTORY Hx Surgeries: No Meds Allergies/Adverse Reactions: Allergies Allergy/AdvReac Type Severity Reaction Status Date / Time No Known Allergies Allergy Verified 01/26/18 03:04 - Medications Medications: Current Medications Sodium Chloride (Sodium Chloride 0.9%) 1,000 mls @ 80 mls/hr IV .[id number] HANH Last Admin: 01/26/18 03:45 Dose: 80 mls/hr Magnesium 2 gm/50 ml NS (Magnesium Sulfate 2 Gm/50 Ml Ns) 2 gm in 50 mls @ 50 mls/hr IVPB ONCE ONE Stop: 01/26/18 06:51 Aztreonam (Azactam 2 Gm) 100 mls @ 100 mls/hr IVPB STAT STA PRN Reason: Protocol Stop: 01/26/18 07:06 Vancomycin HCl (Vancomycin 1gm) 1 gm in 250 mls @ 167 mls/hr IVPB Q12H HANH PRN Reason: Protocol Physical Exam - Constitutional Appears: Chronically Ill - Head Exam Head Exam: NORMAL INSPECTION - ENT Exam ENT Exam: Mucous Membranes Moist - Neck Exam Neck exam: Negative for: Lymphadenopathy, Meningismus - Respiratory Exam Respiratory Exam: Decreased Breath Sounds - Cardiovascular Exam Cardiovascular Exam: +S1, +S2 - GI/Abdominal Exam GI & Abdominal Exam: Soft. absent: Tenderness Results - Vital Signs Recent Vital Signs: Last Vital Signs Temp 99.0 F 01/26/18 06:12 Pulse 105 H 01/26/18 06:12 Resp 20 01/26/18 06:12 BP 124/65 01/26/18 06:12 Pulse Ox 100 01/26/18 06:12 - Labs Result Diagrams: 01/26/18 03:16 01/26/18 11:12 Assessment & Plan - Assessment and Plan (Free Text) Plan: Assessment Systemic inflammatory response syndrome, R/O sepsis from right lower extremity cellulitis syncope, etiolology to be determined HTN history of CVA dyslipidemia obesity with BMI 35 Plan Started the patient on vancoymcin and CEfepime pending blood cx; follow up CT head and will get CT of right leg will monitor clinically
--- NOTE | 2018-01-26 14:26 | CT ---
PROCEDURE: CT HEAD WITHOUT CONTRAST. HISTORY: confusion, disorientation COMPARISON: None available. TECHNIQUE: Axial computed tomography images were obtained through the head/brain without intravenous contrast. Radiation dose: Total exam DLP = 1070 mGy-cm. This CT exam was performed using one or more of the following dose reduction techniques: Automated exposure control, adjustment of the mA and/or kV according to patient size, and/or use of iterative reconstruction technique. FINDINGS: HEMORRHAGE: No intracranial hemorrhage. BRAIN: No mass effect or edema. There is a chronic lacunar infarct in the left thalamus. Mild chronic microvascular changes are seen. VENTRICLES: Unremarkable. No hydrocephalus. CALVARIUM: Unremarkable. PARANASAL SINUSES: Unremarkable as visualized. No significant inflammatory changes. MASTOID AIR CELLS: Unremarkable as visualized. No inflammatory changes. OTHER FINDINGS: None. IMPRESSION: No acute findings
--- NOTE | 2018-01-26 14:44 | PCM.SEPTIC ---
Sepsis Progress Note - Reassessment Type Date of Evaluation: 01/26/18 Time of Evaluation: 10:00 Reassessment Type: Non-invasive reassessment - Non Invasive Reassessment Were the most recent vital sign reviewed: Yes Vital Sign (Latest): Temp Pulse Resp BP Pulse Ox 99.3 F 81 18 99/45 L 96 01/26/18 13:01 01/26/18 13:01 01/26/18 13:01 01/26/18 13:01 01/26/18 13:00 Cardiovascular: Yes: Regular Rate, Rhythm Respiratory: Yes: Normal Breath Sounds. No: Rales, Rhonchi, Wheezing Capillary Refill: Normal (Less than 2 sec) Skin: Other (erythema on right lower extremity)
--- NOTE | 2018-01-26 15:19 | CT ---
PROCEDURE: CT of the right lower extremity without contrast HISTORY: rule out collection COMPARISON: TECHNIQUE: Radiation dose: Total exam DLP = 216 mGy-cm. This CT exam was performed using one or more of the following dose reduction techniques: Automated exposure control, adjustment of the mA and/or kV according to patient size, and/or use of iterative reconstruction technique. FINDINGS: There are no fluid collections seen in the subcutaneous space or within the muscles of the lower extremities. There are no bony abnormalities seen. IMPRESSION: Negative study
[2018-01-26] MEDS: Potassium & Sodium Phosphate PO SCH ×3 (16:43→22:37)
[2018-01-26] MEDS ORDERED: Sodium Chloride 0.9% 1,000 ML IV SCH (16:43)
[2018-01-26] MEDS ORDERED: Vancomycin 1gm in NS 250ml 1 GM/250 ML BAG IVPB SCH (18:30)
[2018-01-26 19:13] LABS: BASO # 0.03 K/mm3 (0.0-2.0); BASO % 0.1 % (0.0-3.0); GRAN # 24.7 (1.4-6.5); HEMOGLOBIN 12.8 g/dL (14.0-18.0); LYMPH # 1.2 (1.2-3.4); LYMPH % 4.3 % (22.0-35.0); MEAN CELL VOLUME 77.8 fl (80.0-105.0); MEAN CORPUSCULAR HEMOGLOBIN 26.6 pg (25.0-35.0); MEAN CORPUSCULAR HGB CONC 34.2 g/dl (31.0-37.0); MEAN PLATELET VOLUME 8.7 fl (7.0-11.0); MONO % 3.6 % (1.0-6.0); RBC 4.81 10^6/uL (3.5-6.1); RED CELL DISTRIBUTION WIDTH 15.4 % (11.5-14.5)
[2018-01-26 19:16] LABS: WHITE BLOOD COUNT 26.9 10^3/ul (4.5-11.0)
[2018-01-26 19:29] LABS: BLOOD UREA NITROGEN 21 mg/dL (7-21); CALCIUM 8.1 mg/dL (8.4-10.5); GFR AFRICAN-AMERICAN > 60; GFR NON-AFRICAN AMERICAN 55
[2018-01-26] MEDS ORDERED: Magnesium Sulfate 1 gm in D5W 1 GM/100 ML BAG IVPB ONE (21:48)
[2018-01-27] MEDS: Sodium Chloride 0.9% 1,000 ML IV SCH ×6 (01:39→23:38)
[2018-01-27] MEDS: Pantoprazole 40 mg EC Tab PO SCH (06:23)
--- NOTE | 2018-01-27 07:08 | CP.PCM.PN ---
<Ishmael Peng - Last Filed: 01/27/18 15:28> Subjective - Date & Time of Evaluation Date of Evaluation: 01/27/18 Time of Evaluation: 07:27 - Subjective Subjective: Patient seen and examined at bedside saying "ay" states he is cold and this is how he is expressing himself. States it started 30 minutes ago. Asked nurse to check temp which was 99.4 F. Patient denies shortness of breath, chest pain, palpitations, fevers, nausea, vomiting, diarrhea, abdominal pain, leg pain, headaches, cough. Objective - Vital Signs/Intake and Output Vital Signs (last 24 hours): Temp Pulse Resp BP Pulse Ox 98.2 F 68 20 100/52 L 96 01/27/18 06:00 01/27/18 06:00 01/27/18 06:00 01/27/18 06:00 01/27/18 06:00 Intake and Output: 01/27/18 01/27/18 06:59 18:59 Intake Total 360 Balance 360 - Medications Medications: Current Medications Acetaminophen (Tylenol 325mg Tab) 650 mg PO Q6H PRN PRN Reason: Fever >100.4 F Last Admin: 01/26/18 21:20 Dose: 650 mg Acetaminophen (Tylenol 325mg Tab) 650 mg PO Q4 PRN PRN Reason: Fever >100.4 F Last Admin: 01/27/18 00:15 Dose: 650 mg Heparin Sodium (Porcine) (Heparin) 5,000 units SC Q12 HANH PRN Reason: Protocol Last Admin: 01/26/18 21:24 Dose: 5,000 units Cefepime HCl (Maxipime 2gm) 2 gm in 100 mls @ 100 mls/hr IVPB Q12 HANH PRN Reason: Protocol Stop: 01/31/18 10:01 Last Admin: 01/26/18 21:21 Dose: 100 mls/hr Sodium Chloride (Sodium Chloride 0.9%) 1,000 mls @ 150 mls/hr IV .Q6H40M [facility] Last Admin: 01/27/18 01:39 Dose: Not Given Pantoprazole Sodium (Protonix Ec Tab) 40 mg PO 0600 [facility] Last Admin: 01/27/18 06:23 Dose: 40 mg Potassium Phos/Sodium Phos (Neutra-Phos) 1 pkt PO TID [facility] Stop: 01/27/18 10:01 Last Admin: 01/26/18 22:37 Dose: 1 pkt - Labs Labs: 01/26/18 19:10 01/26/18 19:10 PT 13.3 SECONDS (9.4-12.5) H 01/26/18 03:16 INR 1.16 (0.93-1.08) H 01/26/18 03:16 APTT 25.4 Seconds (25.1-36.5) 01/26/18 03:16 - Head Exam Head Exam: ATRAUMATIC, NORMAL INSPECTION, NORMOCEPHALIC - Eye Exam Eye Exam: EOMI, Normal appearance - ENT Exam ENT Exam: Mucous Membranes Moist - Respiratory Exam Respiratory Exam: Wheezes. absent: Clear to Ausculation Bilateral - Cardiovascular Exam Cardiovascular Exam: REGULAR RHYTHM, +S1, +S2 - GI/Abdominal Exam GI & Abdominal Exam: Soft, Normal Bowel Sounds - Extremities Exam Extremities Exam: Normal Inspection - Back Exam Back Exam: NORMAL INSPECTION - Neurological Exam Neurological Exam: Alert, Awake, Oriented x3 - Psychiatric Exam Psychiatric exam: Normal Affect, Normal Mood - Skin Skin Exam: Normal Color, Warm Assessment and Plan - Assessment and Plan (Free Text) Assessment: Patient is a 67 year old male with a past medical history of hypertension, CVA x2, hyperlipidemia, and questionable psych history, who presents with sepsis likely due to Left lower base pneumonia and RLE cellulitis vs malarial infection. Plan: Sepsis * ID on consult * Likely due to Left lower lobe pneumonia and RLE cellulitis vs. Malaria * CT abdomen/pelvis reveals left lower base pneumonia with no acute abdominal pathology * CT right lower extremity reveal no pockets of air/fluid * Right Lower extremity dopplers ordered; negative for DVT * Antiparasitic work up ordered by ID; results pending * Rapid flu negative * Leukocytosis 26.9 up from 18.7, rectal temp 103.1 at 12:15 a.m., since then patient was afebrile and spiked a temperature and became afebrile once again for the past 3 hours , lactate now 2 down from 4.7 * Continue with Vanc and Merrem as per ID * Malarone started for malaria treatment * Blood cultures; no growth after 24 hours * Urine culture; final no growth * Procalcitonin 2.79, CRP>15 * NS@200cc/h Rhabdomyolysis * Secondary to malaria vs sepsis * IVF@200 * Continue to monitor electrolytes and renal function Anemia * Iron deficiency vs. Malaria * Anemia workup ordered; * TIBC, IRON, ferritin, transferrin, haptoglobin, Vitamin B12 and folate ordered ; results pending Electrolyte Imbalance * Continue to monitor Ca,Mg ,K, Phos * Replete as needed and continue to monitor with labs History of HTN, HLD * Home medications started Prophylaxis * DVT: heparin SC; SCDs * GI: protonix 40 QD <Gianna Hope - Last Filed: 01/27/18 16:11> Objective - Vital Signs/Intake and Output Vital Signs (last 24 hours): Temp Pulse Resp BP Pulse Ox 99.8 F H 83 20 107/63 96 01/27/18 12:00 01/27/18 12:00 01/27/18 12:00 01/27/18 12:00 01/27/18 06:00 Intake and Output: 01/27/18 01/27/18 06:59 18:59 Intake Total 360 Balance 360 - Medications Medications: Current Medications Acetaminophen (Tylenol 325mg Tab) 650 mg PO Q4 PRN PRN Reason: Fever >100.4 F Last Admin: 01/27/18 00:15 Dose: 650 mg Heparin Sodium (Porcine) (Heparin) 5,000 units SC Q12 HANH PRN Reason: Protocol Last Admin: 01/27/18 09:04 Dose: 5,000 units Home Med (Home Med) 4 unit PO DAILY HANH Stop: 01/29/18 10:01 Last Admin: 01/27/18 15:09 Dose: 4 unit Meropenem (Merrem Iv 1 Gm Premix) 50 mls @ 100 mls/hr IVPB Q12 HANH PRN Reason: Protocol Last Admin: 01/27/18 10:45 Dose: 100 mls/hr Doxycycline Hyclate 100 mg/ (Sodium Chloride) 100 mls @ 100 mls/hr IVPB Q12 HANH PRN Reason: Protocol Last Admin: 01/27/18 14:38 Dose: 100 mls/hr Sodium Chloride (Sodium Chloride 0.9%) 1,000 mls @ 200 mls/hr IV .Q5H [facility] Last Admin: 01/27/18 14:39 Dose: 200 mls/hr Levalbuterol HCl (Xopenex) 0.63 mg IH TIDRESP [facility] Last Admin: 01/27/18 13:21 Dose: Not Given Pantoprazole Sodium (Protonix Ec Tab) 40 mg PO 0600 [facility] Last Admin: 01/27/18 06:23 Dose: 40 mg - Labs Labs: 01/27/18 06:30 01/27/18 06:30 PT 13.3 SECONDS (9.4-12.5) H 01/26/18 03:16 INR 1.16 (0.93-1.08) H 01/26/18 03:16 APTT 25.4 Seconds (25.1-36.5) 01/26/18 03:16 - Extremities Exam Extremities Exam: absent: Normal Inspection Additional comments: right lower extremity erythema (improving) and swelling Attending/Attestation - Attestation I have personally seen and examined this patient.: Yes I have fully participated in the care of the patient.: Yes I have reviewed all pertinent clinical information, including history, physical exam and plan: Yes Notes (Text): 01/27/18 16:05 67 year old male with past medical history of hypertension, CVA, and dyslipidemia who presented with altered mental status /delirium (resolved) and sepsis secondary to right lower extremity cellulitis. CT lower extremity was negative for abscess. LE doppler pending to rule out DVT. Continue with iv antibiotics. ID is following. CT abd/pelvis showed left lower base consolidation. CT head was negative for acute findings. Patient also admitted to recent travel from [place] with ?mosquito bites. Malarone therapy is started. Further workup ordered by ID. Continue with iv fluids for rhabdomyolysis. He initially had severe electrolyte imbalance which improved. Gianna Hope MD Hospitalist.
[2018-01-27 07:16] LABS: BASO # 0.04 K/mm3 (0.0-2.0); BASO % 0.2 % (0.0-3.0); EOS % 0.1 % (1.5-5.0); GRAN # 21.33 (1.4-6.5); GRAN % 88.3 % (50.0-68.0); HEMOGLOBIN 12.6 g/dL (14.0-18.0); LYMPH # 1.9 (1.2-3.4); LYMPH % 7.9 % (22.0-35.0); MEAN CORPUSCULAR HEMOGLOBIN 26.3 pg (25.0-35.0); MEAN CORPUSCULAR HGB CONC 33.2 g/dl (31.0-37.0); MEAN PLATELET VOLUME 9.4 fl (7.0-11.0); MONO # 0.8 (0.1-0.6); MONO % 3.5 % (1.0-6.0); RBC 4.8 10^6/uL (3.5-6.1); RED CELL DISTRIBUTION WIDTH 15.8 % (11.5-14.5); WHITE BLOOD COUNT 24.1 10^3/ul (4.5-11.0)
[2018-01-27 08:04] LABS: ALB/GLOB RATIO 0.9 (1.1-1.8); ALT/SGPT 29 U/L (7-56); AST/SGOT 87 U/L (17-59); BLOOD UREA NITROGEN 20 mg/dL (7-21); CALCIUM 7.7 mg/dL (8.4-10.5); GFR AFRICAN-AMERICAN > 60; GFR NON-AFRICAN AMERICAN 55
[2018-01-27] MEDS: Levalbuterol 0.63 MG/3 ML Inhal Soln UD IH SCH ×3 (08:41→19:32)
[2018-01-27] MEDS: Cefepime IV 2 gm in NS 2 GM/100 ML BAG IVPB SCH (09:04)
[2018-01-27] MEDS: Potassium & Sodium Phosphate PO SCH (09:05)
--- NOTE | 2018-01-27 09:51 | RAD ---
HISTORY: fever COMPARISON: 01/26/2018 FINDINGS: LUNGS: No active pulmonary disease. PLEURA: No significant pleural effusion identified, no pneumothorax apparent. CARDIOVASCULAR: Normal. OSSEOUS STRUCTURES: No significant abnormalities. VISUALIZED UPPER ABDOMEN: Normal. OTHER FINDINGS: None. IMPRESSION: No active disease.
[2018-01-27] MEDS ORDERED: Vancomycin 2 GM in Sodium Chloride 0.9% 500 ML IVPB ONE (10:25)
[2018-01-27] MEDS ORDERED: Barium Sulfate Susp 2.1% w/v, 2.0% w/w 450 mL Bottle PO ONE (10:26)
[2018-01-27] MEDS: Meropenem IV 1 gm in NS 50 ML IVPB SCH ×2 (10:45→22:45)
--- NOTE | 2018-01-27 11:18 | CP.PCM.PN ---
Subjective - Date & Time of Evaluation Date of Evaluation: 01/27/18 Time of Evaluation: 10:50 - Subjective Subjective: Patient still having fevers, states he has occasional rigors and now volunteers that the patient was in [place] 2 weeks ago and was bitten by mosquitoes. Objective - Vital Signs/Intake and Output Vital Signs (last 24 hours): Temp Pulse Resp BP Pulse Ox 100.8 F H 94 H 20 100/52 L 96 01/27/18 09:04 01/27/18 08:45 01/27/18 06:00 01/27/18 06:00 01/27/18 06:00 Intake and Output: 01/27/18 01/27/18 06:59 18:59 Intake Total 360 Balance 360 - Medications Medications: Current Medications Acetaminophen (Tylenol 325mg Tab) 650 mg PO Q6H PRN PRN Reason: Fever >100.4 F Last Admin: 01/27/18 09:04 Dose: 650 mg Acetaminophen (Tylenol 325mg Tab) 650 mg PO Q4 PRN PRN Reason: Fever >100.4 F Last Admin: 01/27/18 00:15 Dose: 650 mg Heparin Sodium (Porcine) (Heparin) 5,000 units SC Q12 HANH PRN Reason: Protocol Last Admin: 01/27/18 09:04 Dose: 5,000 units Sodium Chloride (Sodium Chloride 0.9%) 1,000 mls @ 150 mls/hr IV .Q6H40M [facility] Last Admin: 01/27/18 08:21 Dose: Not Given Meropenem (Merrem Iv 1 Gm Premix) 50 mls @ 100 mls/hr IVPB Q12 HANH PRN Reason: Protocol Levalbuterol HCl (Xopenex) 0.63 mg IH TIDRESP [facility] Last Admin: 01/27/18 08:41 Dose: 0.63 mg Pantoprazole Sodium (Protonix Ec Tab) 40 mg PO 0600 [facility] Last Admin: 01/27/18 06:23 Dose: 40 mg - Labs Labs: 01/27/18 06:30 01/27/18 06:30 PT 13.3 SECONDS (9.4-12.5) H 01/26/18 03:16 INR 1.16 (0.93-1.08) H 01/26/18 03:16 APTT 25.4 Seconds (25.1-36.5) 01/26/18 03:16 - Constitutional Appears: Chronically Ill - Head Exam Head Exam: NORMAL INSPECTION - ENT Exam ENT Exam: Mucous Membranes Moist - Neck Exam Neck Exam: absent: Lymphadenopathy, Meningismus - Respiratory Exam Respiratory Exam: Decreased Breath Sounds - Cardiovascular Exam Cardiovascular Exam: +S1, +S2 - GI/Abdominal Exam GI & Abdominal Exam: Soft. absent: Tenderness Assessment and Plan - Assessment and Plan (Free Text) Plan: Assessment Systemic inflammatory response syndrome, R/O sepsis from right lower extremity cellulitis; R/O malaria, R/O vector-borne (ie. mosquito-related) febrile illness such as malaria or dengue syncope, etiology to be determined HTN history of CVA dyslipidemia obesity with BMI 35 Plan continue intermittent vancoymcin and changed Cefepime to Merrem day 2; blood cx are negative; reviewed CT leg which is negative - will check CT C/A/P; will also check malaria smear and Dengue, Chikungunya Ab - asked pharmacy to procure Malorone to start empiric malaria treatment will continue to monitor clinically
[2018-01-27 13:17] LABS: CK-MB 3.9 ng/mL (0.0-3.6)
--- NOTE | 2018-01-27 14:09 | CT ---
PROCEDURE: CT Chest, Abdomen and Pelvis without intravenous contrast HISTORY: rule out intra-abdominal infection COMPARISON: None. TECHNIQUE: Radiation dose: Total exam DLP = 1788 mGy-cm. This CT exam was performed using one or more of the following dose reduction techniques: Automated exposure control, adjustment of the mA and/or kV according to patient size, and/or use of iterative reconstruction technique. FINDINGS: CT CHEST WITHOUT CONTRAST: LUNGS: There is subsegmental consolidation at the left lung base MEDIASTINUM: Unremarkable. Normal caliber aorta and pulmonary arterial trunk. Normal size heart. LYMPH NODES: Unremarkable. PLEURA: Unremarkable. No pneumothorax. No pleural fluid. BONES: Unremarkable. OTHER FINDINGS: None. CT ABDOMEN AND PELVIS: LIVER: Unremarkable. No gross lesion or ductal dilatation. GALLBLADDER AND BILE DUCTS: Unremarkable. PANCREAS: Unremarkable. No gross lesion or ductal dilatation. SPLEEN: Unremarkable. ADRENALS: Unremarkable. No mass. KIDNEYS AND URETERS: Unremarkable. No hydronephrosis. No solid mass. VASCULATURE: Unremarkable. No aortic aneurysm. BOWEL: Unremarkable. No obstruction. No gross mural thickening. APPENDIX: Normal appendix. PERITONEUM: Unremarkable. No free fluid. No free air. LYMPH NODES: Unremarkable. No enlarged lymph nodes. BLADDER: Unremarkable. REPRODUCTIVE: Unremarkable. BONES: No acute fracture. OTHER FINDINGS: None. IMPRESSION: There is subsegmental consolidation at the left lung base posteriorly. There are no acute intra-abdominal findings
[2018-01-27] MEDS: ATOVAQUONE PO SCH (15:09)
[2018-01-27] MEDS: PROGUANIL PO SCH (15:09)
[2018-01-27 16:29] LABS: IRON 11 ug/dL (45-180)
[2018-01-27 16:38] LABS: % IRON SATURATION 4 % (20-55); TOTAL IRON BINDING CAPACITY 258 ug/dL (261-462)
--- NOTE | 2018-01-27 17:33 | US ---
PROCEDURE: Right lower extremity venous US HISTORY: Leg pain and swelling. Evaluate for DVT. PHYSICIAN(S): Norberto Brink M.D. TECHNIQUE: Duplex sonography and color-flow Doppler with graded compression were used to evaluate the deep venous system of the right lower extremity. FINDINGS: The visualized deep venous system of the right lower extremity is sonographically normal and compressible. Normal waveforms and augmentation are seen. There is no sonographic evidence for deep venous thrombosis in the visualized segments of the right lower extremity. IMPRESSION: 1. No sonographic evidence for deep venous thrombosis in the visualized segments of the right lower extremity.
[2018-01-27 22:12] LABS: FOLATE 6.6 ng/mL
[2018-01-28] MEDS ORDERED: Levalbuterol 0.63 MG/3 ML Inhal Soln UD IH PRN (03:02)
[2018-01-28] MEDS: Pantoprazole 40 mg EC Tab PO SCH (06:38)
[2018-01-28] MEDS: Sodium Chloride 0.9% 1,000 ML IV SCH (06:40)
[2018-01-28] MEDS: Levalbuterol 0.63 MG/3 ML Inhal Soln UD IH SCH (07:50)
[2018-01-28 08:20] LABS: BASO # 0.03 K/mm3 (0.0-2.0); BASO % 0.2 % (0.0-3.0); EOS # 0.2 (0.0-0.7); EOS % 1.5 % (1.5-5.0); GRAN # 12.78 (1.4-6.5); GRAN % 81.7 % (50.0-68.0); HEMOGLOBIN 11.8 g/dL (14.0-18.0); LYMPH # 1.7 (1.2-3.4); LYMPH % 10.5 % (22.0-35.0); MEAN CELL VOLUME 79.3 fl (80.0-105.0); MEAN CORPUSCULAR HEMOGLOBIN 26.5 pg (25.0-35.0); MEAN CORPUSCULAR HGB CONC 33.4 g/dl (31.0-37.0); MEAN PLATELET VOLUME 9.3 fl (7.0-11.0); MONO % 6.1 % (1.0-6.0); RBC 4.45 10^6/uL (3.5-6.1); RED CELL DISTRIBUTION WIDTH 15.9 % (11.5-14.5); WHITE BLOOD COUNT 15.7 10^3/ul (4.5-11.0)
[2018-01-28] MEDS ORDERED: Sodium Chloride 0.9% 1,000 ML IV SCH (08:48)
[2018-01-28] MEDS: MethylPREDNISolone 40 mg Vial IVP SCH ×2 (09:19→17:42)
[2018-01-28] MEDS: PROGUANIL PO SCH (09:20)
[2018-01-28] MEDS: ATOVAQUONE PO SCH (09:20)
--- NOTE | 2018-01-28 09:40 | RAD ---
HISTORY: dyspnea COMPARISON: 01/26/2018 FINDINGS: LUNGS: No active pulmonary disease. PLEURA: No significant pleural effusion identified, no pneumothorax apparent. CARDIOVASCULAR: Mild cardiomegaly. Moderate vascular congestion OSSEOUS STRUCTURES: No significant abnormalities. VISUALIZED UPPER ABDOMEN: Normal. OTHER FINDINGS: None. IMPRESSION: Mild cardiomegaly and moderate vascular congestion
[2018-01-28 11:14] LABS: ALB/GLOB RATIO 0.9 (1.1-1.8); ALBUMIN 3.3 g/dL (3.0-4.8); ALT/SGPT 52 U/L (7-56); AST/SGOT 120 U/L (17-59); BLOOD UREA NITROGEN 12 mg/dL (7-21); CALCIUM 7.3 mg/dL (8.4-10.5); GFR AFRICAN-AMERICAN > 60; GFR NON-AFRICAN AMERICAN > 60
[2018-01-28] MEDS: Meropenem IV 1 gm in NS 50 ML IVPB SCH ×2 (11:34→22:36)
[2018-01-28] MEDS: Albuterol-Ipratrop 3 mg / 0.5 (3 ml) UD IH SCH ×3 (13:43→21:44)
--- NOTE | 2018-01-28 14:29 | CP.PCM.PN ---
Subjective - Date & Time of Evaluation Date of Evaluation: 01/28/18 Time of Evaluation: 11:20 - Subjective Subjective: Still had low grade fevers overnight, complaining of orthopnea. Objective - Vital Signs/Intake and Output Vital Signs (last 24 hours): Temp Pulse Resp BP Pulse Ox 98.9 F 82 18 118/68 99 01/28/18 06:00 01/28/18 06:00 01/28/18 06:00 01/28/18 06:00 01/28/18 06:00 Intake and Output: 01/28/18 01/28/18 06:59 18:59 Intake Total 240 Output Total 1150 Balance -910 - Medications Medications: Current Medications Acetaminophen (Tylenol 325mg Tab) 650 mg PO Q4 PRN PRN Reason: Fever >100.4 F Last Admin: 01/27/18 23:36 Dose: 650 mg Heparin Sodium (Porcine) (Heparin) 5,000 units SC Q12 [facility] PRN Reason: Protocol Last Admin: 01/27/18 22:45 Dose: 5,000 units Home Med (Home Med) 4 unit PO DAILY [facility] Stop: 01/29/18 10:01 Last Admin: 01/27/18 15:09 Dose: 4 unit Meropenem (Merrem Iv 1 Gm Premix) 50 mls @ 100 mls/hr IVPB Q12 [facility] PRN Reason: Protocol Last Admin: 01/27/18 22:45 Dose: 100 mls/hr Doxycycline Hyclate 100 mg/ (Sodium Chloride) 100 mls @ 100 mls/hr IVPB Q12 [facility] PRN Reason: Protocol Last Admin: 01/27/18 22:00 Dose: Not Given Sodium Chloride (Sodium Chloride 0.9%) 1,000 mls @ 200 mls/hr IV .Q5H [facility] Last Admin: 01/28/18 06:40 Dose: 200 mls/hr Levalbuterol HCl (Xopenex) 0.63 mg IH TIDRESP [facility] Last Admin: 01/27/18 19:32 Dose: 0.63 mg Levalbuterol HCl (Xopenex) 0.63 mg IH Q2H PRN PRN Reason: Shortness of Breath Last Admin: 01/28/18 03:26 Dose: 0.63 mg Pantoprazole Sodium (Protonix Ec Tab) 40 mg PO 0600 [facility] Last Admin: 01/28/18 06:38 Dose: 40 mg - Labs Labs: 01/27/18 06:30 01/27/18 06:30 PT 13.3 SECONDS (9.4-12.5) H 01/26/18 03:16 INR 1.16 (0.93-1.08) H 01/26/18 03:16 APTT 25.4 Seconds (25.1-36.5) 01/26/18 03:16 - Constitutional Appears: Chronically Ill - Head Exam Head Exam: NORMAL INSPECTION - ENT Exam ENT Exam: Mucous Membranes Moist - Neck Exam Neck Exam: absent: Meningismus - Respiratory Exam Respiratory Exam: Decreased Breath Sounds - Cardiovascular Exam Cardiovascular Exam: +S1, +S2 - GI/Abdominal Exam GI & Abdominal Exam: Soft. absent: Tenderness Assessment and Plan - Assessment and Plan (Free Text) Plan: Assessment Systemic inflammatory response syndrome, R/O sepsis from right lower extremity cellulitis with associated rhabdomyolysis; R/O malaria, R/O vector-borne (ie. mosquito-related) febrile illness such as malaria or dengue syncope, etiology to be determined HTN history of CVA dyslipidemia obesity with BMI 35 Plan continue intermittent vancoymcin and day 3; blood cx are negative; reviewed CT leg which is negative - CT C/A/P does not show acute findings; follow up malaria smear and Dengue, Chikungunya Ab - complete 3 days of Malarone (day 2 today) follow up 2D echo due to orthopnea will continue to monitor clinically
[2018-01-28] MEDS ORDERED: Potassium Chloride 20 mEq ER Tab PO ONE (14:58)
--- NOTE | 2018-01-28 15:03 | CP.PCM.PN ---
<Adán Cervantes - Last Filed: 01/28/18 15:41> Subjective - Date & Time of Evaluation Date of Evaluation: 01/28/18 Time of Evaluation: 14:59 - Subjective Subjective: Patient seen and evaluated this AM. Patient complains of shortness of breath while laying flat, wheezing, fatigue. Denies fever, chills, nausea, vomiting, confusion. Patient continues to be on IV antibiotics without reaction. Awaiting ID labs. Objective - Vital Signs/Intake and Output Vital Signs (last 24 hours): Temp Pulse Resp BP Pulse Ox 99.4 F 95 H 18 118/78 99 01/28/18 12:00 01/28/18 12:00 01/28/18 12:00 01/28/18 12:00 01/28/18 06:00 Intake and Output: 01/28/18 01/28/18 06:59 18:59 Intake Total 240 2200 Output Total 1150 Balance -910 2200 - Medications Medications: Current Medications Acetaminophen (Tylenol 325mg Tab) 650 mg PO Q4 PRN PRN Reason: Fever >100.4 F Last Admin: 01/27/18 23:36 Dose: 650 mg Albuterol/Ipratropium (Duoneb 3 Mg/0.5 Mg (3 Ml) Ud) 3 ml IH [id number] [facility] Last Admin: 01/28/18 14:44 Dose: Not Given Furosemide (Lasix) 40 mg IVP Q12 [facility] Last Admin: 01/28/18 11:43 Dose: 40 mg Heparin Sodium (Porcine) (Heparin) 5,000 units SC Q12 [facility] PRN Reason: Protocol Last Admin: 01/28/18 09:19 Dose: 5,000 units Home Med (Home Med) 4 unit PO DAILY [facility] Stop: 01/29/18 10:01 Last Admin: 01/28/18 09:20 Dose: 4 unit Meropenem (Merrem Iv 1 Gm Premix) 50 mls @ 100 mls/hr IVPB Q12 [facility] PRN Reason: Protocol Last Admin: 01/28/18 11:34 Dose: 100 mls/hr Doxycycline Hyclate 100 mg/ (Sodium Chloride) 100 mls @ 100 mls/hr IVPB Q12 [facility] PRN Reason: Protocol Last Admin: 01/28/18 09:19 Dose: 100 mls/hr Methylprednisolone (Solu-Medrol) 40 mg IVP Q8H [facility] Last Admin: 01/28/18 09:19 Dose: 40 mg Pantoprazole Sodium (Protonix Ec Tab) 40 mg PO 0600 [facility] Last Admin: 01/28/18 06:38 Dose: 40 mg Potassium Chloride (K-Dur 20 Meq Er Tab) 40 meq PO ONCE ONE Stop: 01/28/18 14:59 - Labs Labs: 01/28/18 07:30 01/28/18 10:58 PT 13.3 SECONDS (9.4-12.5) H 01/26/18 03:16 INR 1.16 (0.93-1.08) H 01/26/18 03:16 APTT 25.4 Seconds (25.1-36.5) 01/26/18 03:16 - Constitutional Appears: No Acute Distress - Head Exam Head Exam: ATRAUMATIC, NORMAL INSPECTION, NORMOCEPHALIC - Eye Exam Eye Exam: EOMI, PERRL - Neck Exam Neck Exam: Full ROM - Respiratory Exam Respiratory Exam: Rales, Wheezes, NORMAL BREATHING PATTERN - Cardiovascular Exam Cardiovascular Exam: REGULAR RHYTHM, +S1, +S2 - GI/Abdominal Exam GI & Abdominal Exam: Distended, Soft, Normal Bowel Sounds. absent: Tenderness - Extremities Exam Extremities Exam: absent: Calf Tenderness Additional comments: Right lowre extremity with erythema, warmth to tuoch, within outlined area from previous 24 hour exam - Neurological Exam Neurological Exam: Alert, Awake, Oriented x3 Neuro motor strength exam: Left Upper Extremity: 5, Right Upper Extremity: 5, Left Lower Extremity: 5, Right Lower Extremity: 5 - Psychiatric Exam Psychiatric exam: Normal Affect, Normal Mood - Skin Skin Exam: Dry, Warm Assessment and Plan - Assessment and Plan (Free Text) Assessment: Patient is a 67 year old male with a past medical history of hypertension, CVA x2, hyperlipidemia, and questionable psych history, who presents with sepsis likely due to LLL PNA and RLE cellulitis vs malarial infection. Patient currently in contact precautions for further work up Plan: CHF - CXR showing congestion, orthopnea on exam - Plan to diuresis patient, holding fluids for rhabdo at this time - Continue to monitor clinical status as well as CK - VSS - Repeat CXR in AM Sepsis- Stable - Etiology: Left lower lobe pneumonia and RLE cellulitis vs. Malaria - CT abdomen/pelvis: left lower base pneumonia with no acute abdominal pathology - CT right lower extremity reveal no pockets of air/fluid - Right Lower extremity dopplers ordered; negative for DVT - Procalcitonin 2.79, CRP>15 - ID consulted and following, as per note - continue intermittent vancoymcin and day 3 - blood cx are negative; reviewed CT leg which is negative - CT C/A/P does not show acute findings - follow up malaria smear and Dengue, Chikungunya Ab - complete 3 days of Malarone (day 2 today) - follow up 2D echo due to orthopnea - will continue to monitor clinically - Urine culture; final no growth - Malaria Source read as negative - Malaria/Babesia smear pending Rhabdomyolysis - Secondary to malaria vs sepsis - Continue to monitor electrolytes and renal function - Monitor CK - Holding fluids in setting of CHF picture Anemia - Iron deficiency vs. Malaria - Haptoglobin 258 - Iron 11, TIBC 258, % Sat 4, Transferrin 175.41 - ACD picture likely Electrolyte Imbalance - Continue to monitor Ca,Mg ,K, Phos - Replete as needed and continue to monitor with labs History of HTN, HLD - Continue home medications DVT/GI ppx: DVT: heparin SC; SCDs GI: protonix 40 QD Case and plan discussed with attending <Agnieszka Kaplan - Last Filed: 01/28/18 16:28> Objective - Vital Signs/Intake and Output Vital Signs (last 24 hours): Temp Pulse Resp BP Pulse Ox 99.4 F 95 H 18 118/78 99 01/28/18 12:00 01/28/18 12:00 01/28/18 12:00 01/28/18 12:00 01/28/18 06:00 Intake and Output: 01/28/18 01/28/18 06:59 18:59 Intake Total 240 3910 Output Total 1150 2000 Balance -910 1910 - Medications Medications: Current Medications Acetaminophen (Tylenol 325mg Tab) 650 mg PO Q4 PRN PRN Reason: Fever >100.4 F Last Admin: 01/27/18 23:36 Dose: 650 mg Albuterol/Ipratropium (Duoneb 3 Mg/0.5 Mg (3 Ml) Ud) 3 ml IH [id number] [facility] Last Admin: 01/28/18 14:44 Dose: Not Given Furosemide (Lasix) 40 mg IVP Q12 [facility] Last Admin: 01/28/18 11:43 Dose: 40 mg Heparin Sodium (Porcine) (Heparin) 5,000 units SC Q12 [facility] PRN Reason: Protocol Last Admin: 01/28/18 09:19 Dose: 5,000 units Home Med (Home Med) 4 unit PO DAILY [facility] Stop: 01/29/18 10:01 Last Admin: 01/28/18 09:20 Dose: 4 unit Meropenem (Merrem Iv 1 Gm Premix) 50 mls @ 100 mls/hr IVPB Q12 [facility] PRN Reason: Protocol Last Admin: 01/28/18 11:34 Dose: 100 mls/hr Doxycycline Hyclate 100 mg/ (Sodium Chloride) 100 mls @ 100 mls/hr IVPB Q12 [facility] PRN Reason: Protocol Last Admin: 01/28/18 09:19 Dose: 100 mls/hr Methylprednisolone (Solu-Medrol) 40 mg IVP Q8H [facility] Last Admin: 01/28/18 09:19 Dose: 40 mg Pantoprazole Sodium (Protonix Ec Tab) 40 mg PO 0600 [facility] Last Admin: 01/28/18 06:38 Dose: 40 mg - Labs Labs: 01/28/18 07:30 01/28/18 10:58 PT 13.3 SECONDS (9.4-12.5) H 01/26/18 03:16 INR 1.16 (0.93-1.08) H 01/26/18 03:16 APTT 25.4 Seconds (25.1-36.5) 01/26/18 03:16 Attending/Attestation - Attestation I have personally seen and examined this patient.: Yes I have fully participated in the care of the patient.: Yes I have reviewed all pertinent clinical information, including history, physical exam and plan: Yes Notes (Text): 01/28/18 16:22 Medical record note made by the resident after discussion with my direction and input after the patient was personally seen and examined by me. I have reviewed the chart and agree that the record accurately reflects by personal performance of the history, physical exam, data review, and medical decision-making, in the course for the patient. I have also personally directed the plan of care. 67 year old male with recent travel from [place] presents with AMS (delirium secondary to sepsis likely resolved) and sepsis secondary to RLE cellulitis and Pneumonia. Malaria work up is in progress.Patient is on IV antibiotics as per ID.WBC is coming down. Patient was found to be dyspnic and wheezing today, Has H/O asthma, will start patient on Neb and steroid. Chest X ray showed fluid overload, will discontinue IV fluid, will start patient on lasix and will get 2D Echo. Microcytic hypochromic anemia, no evidence of hemolysis, will need out patient work up once medically stable. Management plan was discussed in detail with patient. Education was provided. 01/28/18 16:26
[2018-01-28 18:22] LABS: CK-MB 2.9 ng/mL (0.0-3.6)
[2018-01-29] MEDS: Albuterol-Ipratrop 3 mg / 0.5 (3 ml) UD IH SCH ×7 (01:07→23:44)
[2018-01-29] MEDS: MethylPREDNISolone 40 mg Vial IVP SCH ×3 (01:45→22:54)
[2018-01-29] MEDS: Pantoprazole 40 mg EC Tab PO SCH (06:24)
--- NOTE | 2018-01-29 08:40 | RAD ---
HISTORY: dyspnea, eval COMPARISON: 01/28/2018 FINDINGS: LUNGS: No active disease. Decreased vascular congestion PLEURA: Small left effusion CARDIOVASCULAR: Normal. OSSEOUS STRUCTURES: No significant abnormalities. VISUALIZED UPPER ABDOMEN: Normal. OTHER FINDINGS: None. IMPRESSION: No active disease.
[2018-01-29 09:13] LABS: BASO # 0.02 K/mm3 (0.0-2.0); BASO % 0.1 % (0.0-3.0); EOS % 0.1 % (1.5-5.0); GRAN # 14.5 (1.4-6.5); GRAN % 89.2 % (50.0-68.0); HEMOGLOBIN 12.1 g/dL (14.0-18.0); LYMPH # 1.3 (1.2-3.4); LYMPH % 7.8 % (22.0-35.0); MEAN CELL VOLUME 77.1 fl (80.0-105.0); MEAN CORPUSCULAR HEMOGLOBIN 26.1 pg (25.0-35.0); MEAN CORPUSCULAR HGB CONC 33.9 g/dl (31.0-37.0); MEAN PLATELET VOLUME 9.3 fl (7.0-11.0); MONO # 0.5 (0.1-0.6); MONO % 2.8 % (1.0-6.0); RBC 4.63 10^6/uL (3.5-6.1); RED CELL DISTRIBUTION WIDTH 15.4 % (11.5-14.5); WHITE BLOOD COUNT 16.3 10^3/ul (4.5-11.0)
[2018-01-29 09:38] LABS: ALB/GLOB RATIO 0.9 (1.1-1.8); ALBUMIN 3.5 g/dL (3.0-4.8); ALT/SGPT 47 U/L (7-56); AST/SGOT 108 U/L (17-59); BLOOD UREA NITROGEN 17 mg/dL (7-21); CALCIUM 7.7 mg/dL (8.4-10.5); GFR AFRICAN-AMERICAN > 60; GFR NON-AFRICAN AMERICAN > 60
--- NOTE | 2018-01-29 09:43 | CARD ---
APPROVED REPORT EXAM: Two-dimensional and M-mode echocardiogram with Doppler and color Doppler. Other Information Quality : FairRhythm : INDICATION 2D DIMENSIONS Left Atrium (2D)4.0 (1.6-4.0cm)IVSd0.8 (0.7-1.1cm) LVDd4.9 (3.9-5.9cm)PWd0.8 (0.7-1.1cm) LVDs2.9 (2.5-4.0cm)FS (%) 40.9 % LVEF (%)71.0 (>50%) M-Mode DIMENSIONS Aortic Root3.20 (2.2-3.7cm)Aortic Cusp Exc.1.60 (1.5-2.0cm) Aortic Valve AoV Peak Yjdzrqhn119.0cm/s Mitral Valve MV E Hsimranw98.0cm/sMV A Sfinlfos62.7cm/sE/A ratio0.8 TDI Lateral E' Peak V13.70cm/sMedial E' Peak V10.10cm/sE/Lateral E'5.4 E/Medial E'7.3 Tricuspid Valve TR Peak [id number]/sRAP [id number] Peak Gr.36mmHg [id number] LEFT VENTRICLE The left ventricle is normal size. There is normal left ventricular wall thickness. The left ventricular function is normal. The left ventricular ejection fraction is within the normal range. There is normal LV segmental wall motion. RIGHT VENTRICLE The right ventricle is normal size. ATRIA The left atrium size is normal. The right atrium size is normal. The interatrial septum is intact with no evidence for an atrial septal defect. AORTIC VALVE The aortic valve is mildly to moderately calcified. MITRAL VALVE The mitral valve is normal in structure. Mitral regurgitation is trace. TRICUSPID VALVE The tricuspid valve is normal in structure. There is mild tricuspid regurgitation. PULMONIC VALVE The pulmonic valve is not well visualized. GREAT VESSELS The aortic root is normal in size. PERICARDIAL EFFUSION There is no pericardial effusion. <Conclusion> The left ventricle is normal size. There is normal left ventricular wall thickness. The left ventricular function is normal. The aortic valve is mildly to moderately calcified. Aortic sclerosis. There is mild tricuspid regurgitation.
[2018-01-29] MEDS: Meropenem IV 1 gm in NS 50 ML IVPB SCH ×2 (10:58→22:55)
[2018-01-29] MEDS ORDERED: Potassium Chloride 20 mEq ER Tab PO STA (11:00)
[2018-01-29 11:22] LABS: CK-MB 3.4 ng/mL (0.0-3.6)
--- NOTE | 2018-01-29 12:25 | CP.PCM.PN ---
<Adán Cervantes - Last Filed: 01/29/18 12:22> Subjective - Date & Time of Evaluation Date of Evaluation: 01/29/18 Time of Evaluation: 12:22 - Subjective Subjective: Patient seen and evaluated this AM. No acute events reported overnight. Patient indicates his breathing has improved since yesterday. Denies fever, nausea, vomiting, fever, chills, diarrhea. Objective - Vital Signs/Intake and Output Vital Signs (last 24 hours): Temp Pulse Resp BP Pulse Ox 97.5 F L 86 20 107/60 93 L 01/29/18 12:00 01/29/18 12:00 01/29/18 12:00 01/29/18 12:00 01/29/18 05:34 Intake and Output: 01/29/18 01/29/18 06:59 18:59 Intake Total 1430 Output Total 4200 Balance -2770 - Medications Medications: Current Medications Acetaminophen (Tylenol 325mg Tab) 650 mg PO Q4 PRN PRN Reason: Fever >100.4 F Last Admin: 01/27/18 23:36 Dose: 650 mg Albuterol/Ipratropium (Duoneb 3 Mg/0.5 Mg (3 Ml) Ud) 3 ml IH [id number] [facility] Last Admin: 01/29/18 11:21 Dose: 3 ml Furosemide (Lasix) 20 mg IVP DAILY [facility] Heparin Sodium (Porcine) (Heparin) 5,000 units SC Q12 [facility] PRN Reason: Protocol Last Admin: 01/29/18 10:57 Dose: 5,000 units Meropenem (Merrem Iv 1 Gm Premix) 50 mls @ 100 mls/hr IVPB Q12 [facility] PRN Reason: Protocol Last Admin: 01/29/18 10:58 Dose: 100 mls/hr Doxycycline Hyclate 100 mg/ (Sodium Chloride) 100 mls @ 100 mls/hr IVPB Q12 [facility] PRN Reason: Protocol Last Admin: 01/28/18 22:36 Dose: 100 mls/hr Methylprednisolone (Solu-Medrol) 40 mg IVP Q12 [facility] Last Admin: 01/29/18 11:04 Dose: 40 mg Pantoprazole Sodium (Protonix Ec Tab) 40 mg PO 0600 [facility] Last Admin: 01/29/18 06:24 Dose: 40 mg Potassium Chloride (K-Dur 20 Meq Er Tab) 20 meq PO ONCE ONE Stop: 01/29/18 15:01 - Labs Labs: 01/29/18 08:45 01/29/18 08:45 PT 13.3 SECONDS (9.4-12.5) H 01/26/18 03:16 INR 1.16 (0.93-1.08) H 01/26/18 03:16 APTT 25.4 Seconds (25.1-36.5) 01/26/18 03:16 - Constitutional Appears: No Acute Distress - Head Exam Head Exam: ATRAUMATIC, NORMAL INSPECTION, NORMOCEPHALIC - Eye Exam Eye Exam: EOMI, PERRL - ENT Exam ENT Exam: Mucous Membranes Moist - Neck Exam Neck Exam: Full ROM - Respiratory Exam Respiratory Exam: Clear to Ausculation Bilateral, NORMAL BREATHING PATTERN. absent: Rales, Wheezes - Cardiovascular Exam Cardiovascular Exam: REGULAR RHYTHM, +S1, +S2 - GI/Abdominal Exam GI & Abdominal Exam: Distended, Soft, Normal Bowel Sounds. absent: Tenderness - Extremities Exam Extremities Exam: absent: Calf Tenderness, Joint Swelling Additional comments: Right lower extremity with erythema within marked outline, diminished warmth from previous exam, tender to touch, scarring present - Neurological Exam Neurological Exam: Alert, Awake, Oriented x3 Neuro motor strength exam: Left Upper Extremity: 5, Right Upper Extremity: 5, Left Lower Extremity: 5, Right Lower Extremity: 5 - Psychiatric Exam Psychiatric exam: Normal Affect, Normal Mood - Skin Skin Exam: Dry, Warm. absent: Rash, Urticaria Assessment and Plan - Assessment and Plan (Free Text) Assessment: Patient is a 67 year old male with a past medical history of hypertension, CVA x2, hyperlipidemia, and questionable psych history, who presented with sepsis likely due to LLL PNA and RLE cellulitis vs malarial infection. Malaria work up in progress. Plan: CHF - Repeat CXR shows improvement over past 24 hours - Lasix 20mg IV BID, Solumedrol 40mg BID - Continue to monitor clinical status as well as CK - VSS Sepsis- Stable - Etiology: Left lower lobe pneumonia and RLE cellulitis vs. Malaria - CT abdomen/pelvis: left lower base pneumonia with no acute abdominal pathology - CT right lower extremity reveal no pockets of air/fluid - Right Lower extremity dopplers ordered; negative for DVT - Procalcitonin 2.79, CRP>15 - ID consulted and following, as per note - continue intermittent vancoymcin and day 4 - blood cx are negative; reviewed CT leg which is negative - CT C/A/P does not show acute findings - follow up malaria smear and Dengue, Chikungunya Ab - complete 3 days of Malarone (day 3 today) - follow up 2D echo due to orthopnea - will continue to monitor clinically - Urine culture; final no growth - Malaria Source read as negative - Malaria/Babesia smear pending Rhabdomyolysis - Secondary to malaria vs sepsis - Continue to monitor electrolytes and renal function - CK trending downward at this time - Renal function wnl - Holding fluids in setting of CHF Anemia- Microcytic hypochromic - Haptoglobin 258 - Iron 11, TIBC 258, % Sat 4, Transferrin 175.41 - ACD picture likely Electrolyte Imbalance - Continue to monitor Ca,Mg ,K, Phos - Replete as needed and continue to monitor with labs History of HTN, HLD - Continue home medications DVT/GI ppx: DVT: heparin SC; SCDs GI: protonix 40 QD Case and plan discussed with attending <Agnieszka Kaplan - Last Filed: 01/29/18 14:38> Objective - Vital Signs/Intake and Output Vital Signs (last 24 hours): Temp Pulse Resp BP Pulse Ox 97.5 F L 86 20 107/60 93 L 01/29/18 12:00 01/29/18 12:00 01/29/18 12:00 01/29/18 12:00 01/29/18 05:34 Intake and Output: 01/29/18 01/29/18 06:59 18:59 Intake Total 1430 Output Total 4200 Balance -2770 - Medications Medications: Current Medications Acetaminophen (Tylenol 325mg Tab) 650 mg PO Q4 PRN PRN Reason: Fever >100.4 F Last Admin: 01/27/18 23:36 Dose: 650 mg Albuterol/Ipratropium (Duoneb 3 Mg/0.5 Mg (3 Ml) Ud) 3 ml IH [id number] Last Admin: 01/29/18 11:21 Dose: 3 ml Furosemide (Lasix) 20 mg IVP DAILY [facility] Heparin Sodium (Porcine) (Heparin) 5,000 units SC Q12 [facility] PRN Reason: Protocol Last Admin: 01/29/18 10:57 Dose: 5,000 units Meropenem (Merrem Iv 1 Gm Premix) 50 mls @ 100 mls/hr IVPB Q12 [facility] PRN Reason: Protocol Last Admin: 01/29/18 10:58 Dose: 100 mls/hr Doxycycline Hyclate 100 mg/ (Sodium Chloride) 100 mls @ 100 mls/hr IVPB Q12 [facility] PRN Reason: Protocol Last Admin: 01/29/18 13:03 Dose: 100 mls/hr Methylprednisolone (Solu-Medrol) 40 mg IVP Q12 [facility] Last Admin: 01/29/18 11:04 Dose: 40 mg Pantoprazole Sodium (Protonix Ec Tab) 40 mg PO 0600 [facility] Last Admin: 01/29/18 06:24 Dose: 40 mg Potassium Chloride (K-Dur 20 Meq Er Tab) 20 meq PO ONCE ONE Stop: 01/29/18 15:01 - Labs Labs: 01/29/18 08:45 01/29/18 08:45 PT 13.3 SECONDS (9.4-12.5) H 01/26/18 03:16 INR 1.16 (0.93-1.08) H 01/26/18 03:16 APTT 25.4 Seconds (25.1-36.5) 01/26/18 03:16 Attending/Attestation - Attestation I have personally seen and examined this patient.: Yes I have fully participated in the care of the patient.: Yes I have reviewed all pertinent clinical information, including history, physical exam and plan: Yes Notes (Text): 01/29/18 14:34 Medical record note made by the resident after discussion with my direction and input after the patient was personally seen and examined by me. I have reviewed the chart and agree that the record accurately reflects by personal performance of the history, physical exam, data review, and medical decision-making, in the course for the patient. I have also personally directed the plan of care. 67 year old male with recent travel from [place] presents with AMS (delirium secondary to sepsis likely resolved) and sepsis secondary to RLE cellulitis and Pneumonia.Patient is afebrile, blood cultures arenegative for any growth. Malaria work up is in progress.Patient is on IV antibiotics as per ID. Dyspnea has improved.Patient has responded well to IV lasix, Repeat Chest X ray todays showed improvement.We will decrease lasix to 20 mg IVPB daily.Echo showed normal systolic function.We will also decrease dose of methylprednisolon to 40 mg IVPB BID, can be changed to oral in 24 hour. Anemia is due to anemia of chronci disease , also has low iron, there is no evidence of hemolysis, will need out patient work up once medically stable. Management plan was discussed in detail with patient. Education was provided.
--- NOTE | 2018-01-29 12:46 | CP.PCM.PN ---
Subjective - Date & Time of Evaluation Date of Evaluation: 01/29/18 Time of Evaluation: 09:55 - Subjective Subjective: Patient is starting to feel better, no fevers, has a little more energy, no SOB at rest now, able to go to the bathroom from his bed. Objective - Vital Signs/Intake and Output Vital Signs (last 24 hours): Temp Pulse Resp BP Pulse Ox 97.8 F 70 18 93/62 L 93 L 01/29/18 05:34 01/29/18 05:35 01/29/18 05:34 01/29/18 05:34 01/29/18 05:34 Intake and Output: 01/29/18 01/29/18 06:59 18:59 Intake Total 1430 Output Total 4200 Balance -2770 - Medications Medications: Current Medications Acetaminophen (Tylenol 325mg Tab) 650 mg PO Q4 PRN PRN Reason: Fever >100.4 F Last Admin: 01/27/18 23:36 Dose: 650 mg Albuterol/Ipratropium (Duoneb 3 Mg/0.5 Mg (3 Ml) Ud) [id number] [facility] Last Admin: 01/29/18 05:18 Dose: Not Given Furosemide (Lasix) 40 mg IVP Q12 [facility] Last Admin: 01/28/18 22:35 Dose: 40 mg Heparin Sodium (Porcine) (Heparin) 5,000 units SC Q12 [facility] PRN Reason: Protocol Last Admin: 01/28/18 22:35 Dose: 5,000 units Home Med (Home Med) 4 unit PO DAILY [facility] Stop: 01/29/18 10:01 Last Admin: 01/28/18 09:20 Dose: 4 unit Meropenem (Merrem Iv 1 Gm Premix) 50 mls @ 100 mls/hr IVPB Q12 [facility] PRN Reason: Protocol Last Admin: 01/28/18 22:36 Dose: 100 mls/hr Doxycycline Hyclate 100 mg/ (Sodium Chloride) 100 mls @ 100 mls/hr IVPB Q12 [facility] PRN Reason: Protocol Last Admin: 01/28/18 22:36 Dose: 100 mls/hr Methylprednisolone (Solu-Medrol) [address] [facility] Last Admin: 01/29/18 01:45 Dose: 40 mg Pantoprazole Sodium (Protonix Ec Tab) [address] [facility] Last Admin: 01/29/18 06:24 Dose: 40 mg - Labs Labs: 01/28/18 07:30 01/28/18 10:58 PT 13.3 SECONDS (9.4-12.5) H 01/26/18 03:16 INR 1.16 (0.93-1.08) H 01/26/18 03:16 APTT 25.4 Seconds (25.1-36.5) 01/26/18 03:16 - Constitutional Appears: Chronically Ill - Head Exam Head Exam: NORMAL INSPECTION - ENT Exam ENT Exam: Mucous Membranes Moist - Neck Exam Neck Exam: absent: Lymphadenopathy, Meningismus - Respiratory Exam Respiratory Exam: Decreased Breath Sounds. absent: Rales - Cardiovascular Exam Cardiovascular Exam: +S1, +S2 - GI/Abdominal Exam GI & Abdominal Exam: Soft. absent: Tenderness Assessment and Plan - Assessment and Plan (Free Text) Plan: Assessment Systemic inflammatory response syndrome, R/O sepsis from right lower extremity cellulitis with associated rhabdomyolysis; R/O malaria, R/O vector-borne (ie. mosquito-related) febrile illness such as malaria or dengue; R/O systemic viral illness syncope, etiology to be determined HTN history of CVA dyslipidemia obesity with BMI 35 Plan continue doxycycline and Merrem day 3; blood cx are negative; reviewed CT leg which is negative - CT C/A/P does not show acute findings; follow up malaria smear and Dengue, Chikungunya Ab - complete 3 days of Malarone (day 3 today); will also check Erlichia tests, EBV, CMV tests, Coxsackie tests; influenza test is negative 2D echo shows normal LVEF will continue to monitor clinically discussed with family
[2018-01-29] MEDS: PROGUANIL PO SCH (14:53)
[2018-01-29] MEDS: ATOVAQUONE PO SCH (14:53)
[2018-01-29] MEDS ORDERED: Potassium Chloride 20 mEq ER Tab PO ONE ×2 (15:00→18:30)
[2018-01-30] MEDS: Albuterol-Ipratrop 3 mg / 0.5 (3 ml) UD IH SCH ×5 (04:29→22:00)
[2018-01-30] MEDS: Pantoprazole 40 mg EC Tab PO SCH (05:46)
--- NOTE | 2018-01-30 05:54 | CP.PCM.PN ---
Subjective - Date & Time of Evaluation Date of Evaluation: 01/30/18 Time of Evaluation: 05:51 - Subjective Subjective: Patient seen and examined at bedside in no acute distress. States he feels much better as he is able to breathe more without as much shortness of breath as prior. States his input was 2 liters and output 4.5. Is able to ambulate to bathroom, and is making bowel movements. Denies pain at site of cellulitis. Denies shortness of breath, abdominal pain, dizziness, weakness, chest pain, palpitations, nausea, vomiting, diarrhea, dysuria. Objective - Vital Signs/Intake and Output Vital Signs (last 24 hours): Temp Pulse Resp BP Pulse Ox 97.6 F 99 H 20 116/70 98 01/30/18 00:01 01/30/18 02:00 01/30/18 00:01 01/30/18 00:01 01/30/18 00:01 Intake and Output: 01/29/18 01/30/18 18:59 06:59 Intake Total 960 Output Total 850 Balance 110 - Medications Medications: Current Medications Acetaminophen (Tylenol 325mg Tab) 650 mg PO Q4 PRN PRN Reason: Fever >100.4 F Last Admin: 01/27/18 23:36 Dose: 650 mg Albuterol/Ipratropium (Duoneb 3 Mg/0.5 Mg (3 Ml) Ud) 3 ml IH [id number] [facility] Last Admin: 01/30/18 04:29 Dose: Not Given Furosemide (Lasix) 20 mg IVP DAILY [facility] Heparin Sodium (Porcine) (Heparin) 5,000 units SC Q12 [facility] PRN Reason: Protocol Last Admin: 01/29/18 22:54 Dose: 5,000 units Meropenem (Merrem Iv 1 Gm Premix) 50 mls @ 100 mls/hr IVPB Q12 [facility] PRN Reason: Protocol Last Admin: 01/29/18 22:55 Dose: 100 mls/hr Doxycycline Hyclate 100 mg/ (Sodium Chloride) 100 mls @ 100 mls/hr IVPB Q12 [facility] PRN Reason: Protocol Last Admin: 01/29/18 22:54 Dose: 100 mls/hr Magnesium Oxide (Mag-Ox) 400 mg PO DAILY [facility] Methylprednisolone (Solu-Medrol) 40 mg IVP Q12 [facility] Last Admin: 01/29/18 22:54 Dose: 40 mg Pantoprazole Sodium (Protonix Ec Tab) 40 mg PO 0600 [facility] Last Admin: 01/30/18 05:46 Dose: 40 mg Potassium Chloride (K-Dur 20 Meq Er Tab) 40 meq PO 0800 [facility] Potassium Phos/Sodium Phos (Neutra-Phos) 1 pkt PO DAILY [facility] - Labs Labs: 01/29/18 08:45 01/29/18 08:45 PT 13.3 SECONDS (9.4-12.5) H 01/26/18 03:16 INR 1.16 (0.93-1.08) H 01/26/18 03:16 APTT 25.4 Seconds (25.1-36.5) 01/26/18 03:16 - Head Exam Head Exam: ATRAUMATIC, NORMAL INSPECTION, NORMOCEPHALIC - Eye Exam Eye Exam: EOMI, Normal appearance - ENT Exam ENT Exam: Mucous Membranes Moist - Respiratory Exam Respiratory Exam: Clear to Ausculation Bilateral. absent: Wheezes - Cardiovascular Exam Cardiovascular Exam: REGULAR RHYTHM, +S1, +S2 - GI/Abdominal Exam GI & Abdominal Exam: Soft, Normal Bowel Sounds - Extremities Exam Extremities Exam: absent: Normal Inspection (right lower extremity erythemetous , blistering at site of erythema) - Back Exam Back Exam: NORMAL INSPECTION - Neurological Exam Neurological Exam: Alert, Awake, Oriented x3 - Psychiatric Exam Psychiatric exam: Normal Affect, Normal Mood - Skin Skin Exam: Erythema (right left lower extremity), Warm Assessment and Plan - Assessment and Plan (Free Text) Assessment: Patient is a 67 year old male with a past medical history of hypertension, CVA x2, hyperlipidemia, and questionable psych history, who presented with sepsis likely due to LLL PNA and RLE cellulitis vs malarial infection. Malaria work up in progress. Plan: CHF - Repeat CXR shows improvement - Lasix 20mg PO daily, Solumedrol 40mg PO daily - Continue to monitor clinical status as well as CK - VSS Sepsis- Stable - Etiology: Left lower lobe pneumonia and RLE cellulitis vs. Malaria (less likely) - CT abdomen/pelvis: left lower base pneumonia with no acute abdominal pathology - CT right lower extremity reveal no pockets of air/fluid - Right Lower extremity dopplers ordered; negative for DVT - Procalcitonin 2.79, CRP>15; will repeat. - ID consulted and following, as per note - continue vancoymcin day 5 as well as doxycycline and merrem day 4. - blood cx are negative; reviewed CT leg which is negative - CT C/A/P does not show acute findings - follow up malaria smear and Dengue, Chikungunya Ab - 3 days of malarone completed. - 2D echo reveals normal LV, EF 70% - will continue to monitor clinically - Urine culture; final no growth - Malaria Source read as negative - Malaria/Babesia smear pending Rhabdomyolysis - Secondary to malaria vs sepsis - Continue to monitor electrolytes and renal function - CPK trending downward at this time - Renal function wnl - Holding fluids in setting of CHF Anemia- Microcytic hypochromic - Haptoglobin 258 - Iron 11, TIBC 258, % Sat 4, Transferrin 175.41 - ACD, patient must follow up with PMD Electrolyte Imbalance - Continue to monitor Ca,Mg ,K, Phos - Replete daily and continue to monitor with labs - Begin repleting calcium with calcium oxide PO History of HTN - Continue to hold antihypertensives to avoid hypotension considering patient's current BP DVT/GI ppx: DVT: heparin SC; SCDs GI: protonix 40 QD Case and plan discussed with attending
[2018-01-30 07:14] LABS: BASO # 0.05 K/mm3 (0.0-2.0); BASO % 0.3 % (0.0-3.0); EOS % 0.1 % (1.5-5.0); GRAN # 14.64 (1.4-6.5); GRAN % 87.8 % (50.0-68.0); LYMPH # 1.3 (1.2-3.4); LYMPH % 7.7 % (22.0-35.0); MEAN CELL VOLUME 77.5 fl (80.0-105.0); MEAN CORPUSCULAR HEMOGLOBIN 25.5 pg (25.0-35.0); MEAN CORPUSCULAR HGB CONC 32.9 g/dl (31.0-37.0); MEAN PLATELET VOLUME 9.4 fl (7.0-11.0); MONO # 0.7 (0.1-0.6); MONO % 4.1 % (1.0-6.0); RBC 4.31 10^6/uL (3.5-6.1); RED CELL DISTRIBUTION WIDTH 16.1 % (11.5-14.5); WHITE BLOOD COUNT 16.7 10^3/ul (4.5-11.0)
--- NOTE | 2018-01-30 07:44 | PQF CHF ---
Patient had fluid overload, iatrogenic.Patient Echo showed normal systolic function, improved with diuresis This form is a permanent part of the medical record Dr. Kaplan, Chart reflects patient had SOB, orthopnea during course of admission, CXR showing pulmonary vascular congestion, treated with Lasix IV with relief from symptoms, echocardiogram done and documentation of CHF. Please provide specify type and acuity of CHF present. Clarification of your documentation is requested to better reflect the severity of illness and intensity of treatment of your patient. Indicators present [x] Diagnosis of CHF and/or history of CHF [] BNP > 200 [] Imaging Finding of Pulmonary Edema /Pleural Effusions [x] Fluid/Volume Overload [] Pitting edema [] Ejection Fraction < 40% (Indicative of Systolic Heart Failure) [x] Ejection Fraction > 40% (Indicative of Diastolic Heart Failure) [x] Dyspnea / Orthopenea / Paroxysmal Nocturnal Dyspnea [] Other: Location in the medical record that reflects the above clinical findings: [] Treatment Provided: [] Lasix IV PHYSICIAN'S RESPONSE Based on your medical judgment of the clinical indicators outlined above, are you treating this patient for a known or suspected: [] Acute CHF [] Systolic [] Diastolic [] Combined [] Chronic CHF [] Systolic [] Diastolic [] Combined [] Acute on Chronic CHF []Systolic [] Diastolic [] Combined [] CHF due hypertension [] Acute systolic []Chronic systolic [] Acute/ chronic systolic [] Other, please indicate: [] [] If Unable to Determine, please check the box, sign and date. Present On Admission (POA) Indicator: [] Present at the time of admission [] Not present at the time of admission [] Clinically Undetermined In responding to this query, please exercise your independent professional judgment. The fact that a question is asked does not imply that any particular answer is desired or expected. Thank you for your clarification on this documentation. If you have any questions please call:[ ] * Thank you, [ ]Marcella Brock [facility] #[id number] beater tender BRADLY
[2018-01-30 07:46] LABS: ALB/GLOB RATIO 0.9 (1.1-1.8); ALBUMIN 3.2 g/dL (3.0-4.8); ALT/SGPT 59 U/L (7-56); AST/SGOT 93 U/L (17-59); BLOOD UREA NITROGEN 20 mg/dL (7-21); CALCIUM 7.4 mg/dL (8.4-10.5); GFR AFRICAN-AMERICAN > 60; GFR NON-AFRICAN AMERICAN > 60
[2018-01-30] MEDS: Meropenem IV 1 gm in NS 50 ML IVPB SCH ×2 (10:08→21:31)
[2018-01-30] MEDS: Magnesium Oxide 400 mg Tab UD PO SCH ×2 (10:09→11:42)
[2018-01-30] MEDS: Potassium & Sodium Phosphate PO SCH ×2 (10:09→11:42)
[2018-01-30] MEDS: Potassium Chloride 20 mEq ER Tab PO SCH (10:09)
--- NOTE | 2018-01-30 13:31 | CP.PCM.PN ---
Subjective - Date & Time of Evaluation Date of Evaluation: 01/30/18 Time of Evaluation: 10:25 - Subjective Subjective: Patient is feeling much better, no fevers, no muscle aches currently, not in distress, no diarrhea, no nausea, no SOB at rest. No more weakness. Objective - Vital Signs/Intake and Output Vital Signs (last 24 hours): Temp Pulse Resp BP Pulse Ox 97.6 F 63 20 103/63 97 01/30/18 06:00 01/30/18 06:00 01/30/18 06:00 01/30/18 06:00 01/30/18 06:00 Intake and Output: 01/30/18 01/30/18 06:59 18:59 Intake Total 750 Output Total 900 Balance -150 - Medications Medications: Current Medications Acetaminophen (Tylenol 325mg Tab) 650 mg PO Q4 PRN PRN Reason: Fever >100.4 F Last Admin: 01/27/18 23:36 Dose: 650 mg Albuterol/Ipratropium (Duoneb 3 Mg/0.5 Mg (3 Ml) Ud) 3 ml IH [id number] [facility] Last Admin: 01/30/18 08:17 Dose: 3 ml Furosemide (Lasix) 20 mg IVP DAILY [facility] Heparin Sodium (Porcine) (Heparin) 5,000 units SC Q12 [facility] PRN Reason: Protocol Last Admin: 01/29/18 22:54 Dose: 5,000 units Meropenem (Merrem Iv 1 Gm Premix) 50 mls @ 100 mls/hr IVPB Q12 [facility] PRN Reason: Protocol Last Admin: 01/29/18 22:55 Dose: 100 mls/hr Doxycycline Hyclate 100 mg/ (Sodium Chloride) 100 mls @ 100 mls/hr IVPB Q12 [facility] PRN Reason: Protocol Last Admin: 01/29/18 22:54 Dose: 100 mls/hr Magnesium Oxide (Mag-Ox) 400 mg PO DAILY [facility] Pantoprazole Sodium (Protonix Ec Tab) 40 mg PO 0600 [facility] Last Admin: 01/30/18 05:46 Dose: 40 mg Potassium Chloride (K-Dur 20 Meq Er Tab) 40 meq PO 0800 [facility] Potassium Phos/Sodium Phos (Neutra-Phos) 1 pkt PO DAILY [facility] Prednisone (Prednisone Tab) 40 mg PO DAILY [facility] - Labs Labs: 01/30/18 06:30 01/30/18 06:30 PT 13.3 SECONDS (9.4-12.5) H 01/26/18 03:16 INR 1.16 (0.93-1.08) H 01/26/18 03:16 APTT 25.4 Seconds (25.1-36.5) 01/26/18 03:16 - Constitutional Appears: Chronically Ill - Head Exam Head Exam: NORMAL INSPECTION - ENT Exam ENT Exam: Mucous Membranes Moist - Neck Exam Neck Exam: absent: Meningismus - Respiratory Exam Respiratory Exam: Decreased Breath Sounds - Cardiovascular Exam Cardiovascular Exam: +S1, +S2 - GI/Abdominal Exam GI & Abdominal Exam: Soft. absent: Tenderness Assessment and Plan - Assessment and Plan (Free Text) Plan: Assessment Systemic inflammatory response syndrome, R/O sepsis from right lower extremity cellulitis with associated rhabdomyolysis; R/O malaria, R/O vector-borne (ie. mosquito-related) febrile illness such as malaria or dengue; R/O systemic viral illness syncope, etiology to be determined HTN history of CVA dyslipidemia obesity with BMI 35 Plan continue doxycycline and Merrem day 4; blood cx are negative; reviewed CT leg which is negative - CT C/A/P does not show acute findings; follow up malaria smear and Dengue, Chikungunya Ab - completed 3 days of Malarone; follow up Erlichia tests, EBV, CMV tests, Coxsackie tests; influenza test is negative 2D echo shows normal LVEF will continue to monitor clinically discussed with family
[2018-01-30 23:17] VITALS: O2SAT 93
[2018-01-31] MEDS: Albuterol-Ipratrop 3 mg / 0.5 (3 ml) UD IH SCH ×5 (01:40→14:46)
[2018-01-31 03:08] LABS: ANCA SCREEN NEGATIVE (NEGATIVE)
[2018-01-31] MEDS: Pantoprazole 40 mg EC Tab PO SCH (06:34)
[2018-01-31 06:56] LABS: BASO # 0.14 K/mm3 (0.0-2.0); BASO % 0.7 % (0.0-3.0); EOS % 0.2 % (1.5-5.0); GRAN # 14.55 (1.4-6.5); GRAN % 76.2 % (50.0-68.0); HEMOGLOBIN 12.1 g/dL (14.0-18.0); LYMPH # 3.1 (1.2-3.4); LYMPH % 16.2 % (22.0-35.0); MEAN CELL VOLUME 77.4 fl (80.0-105.0); MEAN CORPUSCULAR HGB CONC 33.6 g/dl (31.0-37.0); MONO # 1.3 (0.1-0.6); MONO % 6.7 % (1.0-6.0); RBC 4.65 10^6/uL (3.5-6.1); RED CELL DISTRIBUTION WIDTH 16.4 % (11.5-14.5); WHITE BLOOD COUNT 19.1 10^3/ul (4.5-11.0)
--- NOTE | 2018-01-31 07:25 | CP.PCM.PN ---
Subjective - Date & Time of Evaluation Date of Evaluation: 01/31/18 Time of Evaluation: 07:24 - Subjective Subjective: Patient seen and examined at bedside with no acute complaints. States he feels better than prior. Objective - Vital Signs/Intake and Output Vital Signs (last 24 hours): Temp Pulse Resp BP Pulse Ox 98.4 F 83 20 123/75 93 L 01/30/18 23:16 01/30/18 23:16 01/30/18 23:16 01/30/18 23:16 01/30/18 23:16 Intake and Output: 01/31/18 01/31/18 06:59 18:59 Intake Total 920 Balance 920 - Medications Medications: Current Medications Acetaminophen (Tylenol 325mg Tab) 650 mg PO Q4 PRN PRN Reason: Fever >100.4 F Last Admin: 01/27/18 23:36 Dose: 650 mg Albuterol/Ipratropium (Duoneb 3 Mg/0.5 Mg (3 Ml) Ud) 3 ml IH [id number] [facility] Last Admin: 01/31/18 07:17 Dose: 3 ml Calcium Acetate (Phoslo) 667 mg PO WM [facility] Last Admin: 01/30/18 15:00 Dose: 667 mg Cholecalciferol (Vitamin D) 2,000 intlu PO DAILY [facility] Furosemide (Lasix) 20 mg PO DAILY [facility] Heparin Sodium (Porcine) (Heparin) 5,000 units SC Q12 [facility] PRN Reason: Protocol Last Admin: 01/30/18 21:31 Dose: 5,000 units Meropenem (Merrem Iv 1 Gm Premix) 50 mls @ 100 mls/hr IVPB Q12 [facility] PRN Reason: Protocol Last Admin: 01/30/18 21:31 Dose: 100 mls/hr Doxycycline Hyclate 100 mg/ (Sodium Chloride) 100 mls @ 100 mls/hr IVPB Q12 [facility] PRN Reason: Protocol Last Admin: 01/30/18 22:07 Dose: 100 mls/hr Magnesium Oxide (Mag-Ox) 400 mg PO DAILY [facility] Last Admin: 01/30/18 11:42 Dose: 400 mg Pantoprazole Sodium (Protonix Ec Tab) 40 mg PO 0600 [facility] Last Admin: 01/31/18 06:34 Dose: 40 mg Potassium Chloride (K-Dur 20 Meq Er Tab) 40 meq PO 0800 [facility] Last Admin: 01/30/18 10:09 Dose: 40 meq Potassium Phos/Sodium Phos (Neutra-Phos) 1 pkt PO DAILY [facility] Last Admin: 01/30/18 11:42 Dose: 1 pkt - Labs Labs: 01/31/18 06:20 01/30/18 06:30 PT 13.3 SECONDS (9.4-12.5) H 01/26/18 03:16 INR 1.16 (0.93-1.08) H 01/26/18 03:16 APTT 25.4 Seconds (25.1-36.5) 01/26/18 03:16
[2018-01-31 07:54] VITALS: PULSE 68; RESP 98; TEMP 98.5
[2018-01-31] MEDS: Potassium Chloride 20 mEq ER Tab PO SCH (08:18)
[2018-01-31 08:31] LABS: ALB/GLOB RATIO 0.9 (1.1-1.8); ALBUMIN 3.4 g/dL (3.0-4.8); ALT/SGPT 87 U/L (7-56); AST/SGOT 111 U/L (17-59); BLOOD UREA NITROGEN 18 mg/dL (7-21); CALCIUM 7.9 mg/dL (8.4-10.5); GFR AFRICAN-AMERICAN > 60; GFR NON-AFRICAN AMERICAN > 60
[2018-01-31] MEDS: Magnesium Oxide 400 mg Tab UD PO SCH (09:28)
[2018-01-31] MEDS: Meropenem IV 1 gm in NS 50 ML IVPB SCH (09:28)
[2018-01-31] MEDS: Potassium & Sodium Phosphate PO SCH (09:29)
[2018-01-31 09:39] VITALS: BP 125/65
[2018-01-31] MEDS ORDERED: Cholecalciferol 1,000 INTLU TAB PO SCH (10:00)
--- NOTE | 2018-01-31 15:36 | CP.PCM.DIS ---
Provider - Provider Date of Admission: 01/26/18 06:05 Attending physician: Agnieszka Kaplan MD Primary care physician: Sadia Morris MD Hospital Course - Lab Results Lab Results: Micro Results 01/26/18 22:24 Blood Blood Culture - Preliminary NO GROWTH AFTER 4 DAYS 01/26/18 22:24 Blood Blood Culture - Preliminary NO GROWTH AFTER 4 DAYS 01/28/18 11:45 Urine Urine Culture - Final No Growth (<1,000 CFU/ML) 01/28/18 08:30 Naris MRSA Culture (Admit) - Final MRSA NOT DETECTED Most Recent Lab Values WBC 19.1 10^3/ul (4.5-11.0) H 01/31/18 06:20 RBC 4.65 10^6/uL (3.5-6.1) 01/31/18 06:20 Hgb 12.1 g/dL (14.0-18.0) L 01/31/18 06:20 Hct 36.0 % (42.0-52.0) L 01/31/18 06:20 MCV 77.4 fl (80.0-105.0) L 01/31/18 06:20 MCH 26.0 pg (25.0-35.0) 01/31/18 06:20 MCHC 33.6 g/dl (31.0-37.0) 01/31/18 06:20 RDW 16.4 % (11.5-14.5) H 01/31/18 06:20 Plt Count 339 10^3/uL (120.0-450.0) 01/31/18 06:20 MPV 9.0 fl (7.0-11.0) 01/31/18 06:20 Gran % 76.2 % (50.0-68.0) H 01/31/18 06:20 Lymph % (Auto) 16.2 % (22.0-35.0) L 01/31/18 06:20 [place] % (Auto) 6.7 % (1.0-6.0) H 01/31/18 06:20 Eos % (Auto) 0.2 % (1.5-5.0) L 01/31/18 06:20 Baso % (Auto) 0.7 % (0.0-3.0) 01/31/18 06:20 Gran # 14.55 (1.4-6.5) H 01/31/18 06:20 Lymph # (Auto) 3.1 (1.2-3.4) 01/31/18 06:20 [place] # (Auto) 1.3 (0.1-0.6) H 01/31/18 06:20 Eos # (Auto) 0.0 (0.0-0.7) 01/31/18 06:20 Baso # (Auto) 0.14 K/mm3 (0.0-2.0) 01/31/18 06:20 Neutrophils % (Manual) 85 % (50.0-70.0) H 01/26/18 03:16 Band Neutrophils % 7 % (0-2) H 01/26/18 03:16 Lymphocytes % (Manual) 5 % (22.0-35.0) L 01/26/18 03:16 Monocytes % (Manual) 3 % (1.0-6.0) 01/26/18 03:16 Platelet Evaluation Normal (NORMAL) 01/26/18 03:16 Retic Count 0.74 % (0.5-1.5) 01/27/18 15:10 Haptoglobin 258.5 mg/dL (30.0-200.0) H 01/27/18 15:10 PT 13.3 SECONDS (9.4-12.5) H 01/26/18 03:16 INR 1.16 (0.93-1.08) H 01/26/18 03:16 APTT 25.4 Seconds (25.1-36.5) 01/26/18 03:16 pO2 61 mm/Hg (30-55) H 01/26/18 07:00 VBG pH 7.39 (7.32-7.43) 01/26/18 07:00 VBG pCO2 49.0 (40-60) 01/26/18 07:00 VBG HCO3 29.7 mmol/l (21-28) H 01/26/18 07:00 VBG Total CO2 31.2 mmol.L (22-28) H 01/26/18 07:00 VBG O2 Sat (Calc) 92.2 % (40-65) H 01/26/18 07:00 VBG Base Excess 3.7 mmol/L (0.0-2.0) H 01/26/18 07:00 VBG Potassium 3.8 mmol/L (3.6-5.2) 01/26/18 07:00 Sodium 134.0 mmol/L (132-148) 01/26/18 07:00 Chloride 99.0 mmol/L (98-107) 01/26/18 07:00 Glucose 106 mg/dl (75-110) 01/26/18 07:00 Lactate 4.0 mmol/L (0.7-2.1) H* 01/26/18 07:00 FiO2 21.0 % 01/26/18 07:00 Sodium 141 mmol/L (132-148) 01/31/18 06:20 Potassium 3.7 mmol/L (3.6-5.0) 01/31/18 06:20 Chloride 102 mmol/L (98-107) 01/31/18 06:20 Carbon Dioxide 28 mmol/L (21-33) 01/31/18 06:20 Anion Gap 15 (10-20) 01/31/18 06:20 BUN 18 mg/dL (7-21) 01/31/18 06:20 Creatinine 0.8 mg/dl (0.8-1.5) 01/31/18 06:20 Est GFR ( Amer) > 60 01/31/18 06:20 Est GFR (Non-Af Amer) > 60 01/31/18 06:20 POC Glucose (mg/dL) 132 mg/dL (65-110) H 01/26/18 03:12 Random Glucose 91 mg/dL (70-110) 01/31/18 06:20 Lactic Acid 2.0 mmol/L (0.7-2.1) 01/26/18 22:24 Calcium 7.9 mg/dL (8.4-10.5) L 01/31/18 06:20 Phosphorus 2.0 mg/dL (2.5-4.5) L 01/30/18 06:30 Magnesium 2.0 mg/dL (1.7-2.2) 01/30/18 06:30 Iron 11 ug/dL (45-180) L 01/27/18 15:10 TIBC 258 ug/dL (261-462) L 01/27/18 15:10 % Saturation 4 % (20-55) L 01/27/18 15:10 Transferrin 175.41 mg/dL (206-381) L 01/27/18 15:10 Ferritin 185.0 ng/mL 01/27/18 15:10 Total Bilirubin 0.3 mg/dL (0.2-1.3) 01/31/18 06:20 AST 111 U/L (17-59) H 01/31/18 06:20 ALT 87 U/L (7-56) H 01/31/18 06:20 Alkaline Phosphatase 77 U/L (38-126) 01/31/18 06:20 Lactate Dehydrogenase 656 U/L (333-699) 01/27/18 06:30 Total Creatine Kinase 1299 U/L (35-230) H 01/30/18 06:30 CK-MB (CK-2) 3.0 ng/mL (0.0-3.6) 01/30/18 06:30 CK-MB (CK-2) % Cancelled 01/27/18 06:30 Troponin I 0.03 ng/mL 01/26/18 03:16 C-React Prot High Sens > 15.00 mg/L (1.00-3.00) H 01/30/18 11:45 Total Protein 7.1 g/dL (5.8-8.3) 01/31/18 06:20 Albumin 3.4 g/dL (3.0-4.8) 01/31/18 06:20 Globulin 3.7 gm/dL 01/31/18 06:20 Albumin/Globulin Ratio 0.9 (1.1-1.8) L 01/31/18 06:20 Vitamin B12 250 pg/mL (239-931) 01/27/18 15:10 25-OH Vitamin D Total < 12.8 NG/ML (30.0-100.0) L 01/30/18 10:30 Folate 6.6 ng/mL 01/27/18 15:10 Procalcitonin 4.90 NG/ML (0.19-0.49) H 01/30/18 11:45 Venous Blood Potassium 3.8 mmol/L (3.6-5.2) 01/26/18 07:00 Urine Color Yellow (YELLOW) 01/26/18 06:00 Urine Appearance Clear (CLEAR) 01/26/18 06:00 Urine pH 6.0 (4.7-8.0) 01/26/18 06:00 Ur Specific [place] 1.015 (1.005-1.035) 01/26/18 06:00 Urine Protein Negative mg/dL (<30 mg/dL) 01/26/18 06:00 Urine Glucose (UA) Negative mg/dL (NEGATIVE) 01/26/18 06:00 Urine Ketones Negative mg/dL (NEGATIVE) 01/26/18 06:00 Urine Blood Trace-intact (NEGATIVE) H 01/26/18 06:00 Urine Nitrate Negative (NEGATIVE) 01/26/18 06:00 Urine Bilirubin Negative (NEGATIVE) 01/26/18 06:00 Urine Urobilinogen 0.2 E.U./dL (<1 E.U./dL) 01/26/18 06:00 Ur Leukocyte Esterase Negative [place]/uL (NEGATIVE) 01/26/18 06:00 Urine RBC 0 - 2 /hpf (0-2) 01/26/18 06:00 Urine WBC 0 - 2 /hpf (0-6) 01/26/18 06:00 Ur Epithelial Cells 0 - 2 /hpf (0-5) 01/26/18 06:00 [facility] Screen Negative (Negative) 01/27/18 15:10 [facility] Titer TEST NOT PERFORMED 01/27/18 15:10 [facility] Titer 2 TEST NOT PERFORMED 01/27/18 15:10 [facility] Pattern TEST NOT PERFORMED 01/27/18 15:10 [facility] Pattern 2 TEST NOT PERFORMED 01/27/18 15:10 ANCA Screen Negative (NEGATIVE) 01/27/18 15:10 c-ANCA Titer TNP 01/27/18 15:10 Proteinase 3 (PR3) <1.0 AI (<1.0) 01/27/18 15:10 p-ANCA Titer TNP 01/27/18 15:10 Atypical p-ANCA Titer TNP 01/27/18 15:10 Myeloperoxidase Ab <1.0 AI (<1.0) 01/27/18 15:10 EBV Capsid Ag IgM Ab <36.00 U/mL 01/29/18 09:30 Influenza Typ A,B (EIA) Negative for flu a/b (NEGATIVE) 01/27/18 14:45 Malaria Source See note (NEGATIVE) 01/29/18 09:30 Blood Type B POSITIVE 01/27/18 15:10 Antibody Screen Negative 01/27/18 15:10 FOREIGN, Poly Interpret Negative (NEGATIVE) 01/27/18 15:10 Indirect Antiglob Test Negative 01/27/18 15:10 BBK History Checked No verified bt 01/27/18 15:10 Discharge Exam - Head Exam Head Exam: NORMAL INSPECTION Discharge Plan - Discharge Medications Prescriptions: Albuterol HFA [Ventolin HFA 90 mcg/actuation (8 g)] 1 puff IH Q6 #1 inhaler Budesonide/Formoterol Fumarate [Symbicort] 1 aer IH BID #1 aer Cefpodoxime [Vantin] 200 mg PO BID 7 Days #14 tab Cholecalciferol [Vitamin D 1000 IU] 2,000 intlu PO DAILY #30 tab Doxycycline Hyclate 100 mg PO BID #14 capsule Furosemide [Lasix] 20 mg PO DAILY #2 tab Prednisone [Deltasone] See Taper PO DAILY #4 tablet - Follow Up Plan Condition: FAIR Disposition: HOME/ ROUTINE Instructions: Community-Acquired Pneumonia, Adult (DC), Cellulitis (DC), Sepsis (DC) Additional Instructions: Mr Alexander, thank you for letting us take care of you today. Your provider was Dr. Rosaura MORRISON and you were treated for sepsis secondary to cellulitis and community acquired pneumonia, The emergency medical care you received today was directed at your acute symptoms. If you were prescribed any medication, please fill it and take as directed. It may take several days for your symptoms to resolve. Return to the Emergency Department if your symptoms worsen, do not improve, or if you have any other problems. Please contact your doctor or call one of the physicians/clinics you have been referred to that are listed on the Patient Visit Information form that is included in your discharge packet. Bring any paperwork you were given at discharge with you along with any medications you are taking to your follow up visit. Our treatment cannot replace ongoing medical care by a primary care provider outside of the emergency department. Thank you for allowing the [facility] to be part of your care today. If you had an X-Ray or CT scan: A Radiologist will review the ED reading if any change in treatment is needed we will contact you. If you had a blood, urine, or wound culture: It will take several days for the results, if any change in treatment is needed we will contact you. If you had an STI test: It will take 48 hours for the results. Please call after 1 week if you have not heard back. Referrals: Sadia Morris MD [Primary Care Provider] -
--- NOTE | 2018-01-31 19:56 | CP.PCM.PN ---
Subjective - Date & Time of Evaluation Date of Evaluation: 01/31/18 Time of Evaluation: 10:50 - Subjective Subjective: Patient is feeling much better, no fevers, no muscle aches, has more energy. Objective - Vital Signs/Intake and Output Vital Signs (last 24 hours): Temp Pulse Resp BP Pulse Ox 98.4 F 83 20 123/75 93 L 01/30/18 23:16 01/30/18 23:16 01/30/18 23:16 01/30/18 23:16 01/30/18 23:16 Intake and Output: 01/31/18 01/31/18 06:59 18:59 Intake Total 920 Balance 920 - Medications Medications: Current Medications Acetaminophen (Tylenol 325mg Tab) 650 mg PO Q4 PRN PRN Reason: Fever >100.4 F Last Admin: 01/27/18 23:36 Dose: 650 mg Albuterol/Ipratropium (Duoneb 3 Mg/0.5 Mg (3 Ml) Ud) 3 ml IH Q2ARGGO [facility] Last Admin: 01/31/18 04:40 Dose: Not Given Calcium Acetate (Phoslo) 667 mg PO WM [facility] Last Admin: 01/30/18 15:00 Dose: 667 mg Furosemide (Lasix) 20 mg PO DAILY [facility] Heparin Sodium (Porcine) (Heparin) 5,000 units SC Q12 [facility] PRN Reason: Protocol Last Admin: 01/30/18 21:31 Dose: 5,000 units Meropenem (Merrem Iv 1 Gm Premix) 50 mls @ 100 mls/hr IVPB Q12 [facility] PRN Reason: Protocol Last Admin: 01/30/18 21:31 Dose: 100 mls/hr Doxycycline Hyclate 100 mg/ (Sodium Chloride) 100 mls @ 100 mls/hr IVPB Q12 [facility] PRN Reason: Protocol Last Admin: 01/30/18 22:07 Dose: 100 mls/hr Magnesium Oxide (Mag-Ox) 400 mg PO DAILY [facility] Last Admin: 01/30/18 11:42 Dose: 400 mg Pantoprazole Sodium (Protonix Ec Tab) 40 mg PO 0600 [facility] Last Admin: 01/31/18 06:34 Dose: 40 mg Potassium Chloride (K-Dur 20 Meq Er Tab) 40 meq PO 0800 [facility] Last Admin: 01/30/18 10:09 Dose: 40 meq Potassium Phos/Sodium Phos (Neutra-Phos) 1 pkt PO DAILY [facility] Last Admin: 01/30/18 11:42 Dose: 1 pkt - Labs Labs: 01/30/18 06:30 01/30/18 06:30 PT 13.3 SECONDS (9.4-12.5) H 01/26/18 03:16 INR 1.16 (0.93-1.08) H 01/26/18 03:16 APTT 25.4 Seconds (25.1-36.5) 01/26/18 03:16 - Constitutional Appears: Chronically Ill - Head Exam Head Exam: NORMAL INSPECTION - Neck Exam Neck Exam: absent: Meningismus - Respiratory Exam Respiratory Exam: Decreased Breath Sounds - Cardiovascular Exam Cardiovascular Exam: +S1, +S2 - GI/Abdominal Exam GI & Abdominal Exam: Soft. absent: Tenderness Assessment and Plan - Assessment and Plan (Free Text) Plan: Assessment Systemic inflammatory response syndrome, R/O sepsis from right lower extremity cellulitis with associated rhabdomyolysis; R/O malaria, R/O vector-borne (ie. mosquito-related) febrile illness such as malaria or dengue; R/O systemic viral illness syncope, etiology to be determined HTN history of CVA dyslipidemia obesity with BMI 35 Plan on doxycycline and Merrem day 5; blood cx are negative; reviewed CT leg which is negative - CT C/A/P does not show acute findings; follow up malaria smear and Dengue, Chikungunya Ab - completed 3 days of Malarone; follow up Erlichia tests, EBV, CMV tests, Coxsackie tests; influenza test is negative 2D echo shows normal LVEF discussed with Dr. Kaplan - can switch to PO Doxycycline and PO Cefpodoxime for another 5-7 days with outpatient follow up with PMD
[2018-02-01 11:29] LABS: SOURCE: PLASMA
== END 2018-01-31 15:20 | disposition home or self-care (01) | DRG 871 ==
LOC: ED 02:59 → ERH 06:05 → 2RNO 16:13 → 5RNO 01-30 17:50
PROVIDERS: ADMIT Internal Medicine; ATTEND Internal Medicine
DX: A41.9 Sepsis, unspecified organism (principal); J18.9 Pneumonia, unspecified organism; F05 Delirium due to known physiological condition; L03.115 Cellulitis of right lower limb; L03.116 Cellulitis of left lower limb; D50.9 Iron deficiency anemia, unspecified; E66.9 Obesity, unspecified; E78.5 Hyperlipidemia, unspecified; I11.0 Hypertensive heart disease with heart failure; I50.9 Heart failure, unspecified; J45.909 Unspecified asthma, uncomplicated; W19.XXXA Unspecified fall, initial encounter; Y92.002 Bathroom of unspecified non-institutional (private) residence as the place of occurrence of the external cause; Z68.35 Body mass index [BMI] 35.0-35.9, adult; Z86.73 Personal history of transient ischemic attack (TIA), and cerebral infarction without residual deficits; Z82.49 Family history of ischemic heart disease and other diseases of the circulatory system; Z81.8 Family history of other mental and behavioral disorders; R40.2412 Glasgow coma scale score 13-15, at arrival to emergency department; R00.0 Tachycardia, unspecified; E87.70 Fluid overload, unspecified